=== PATIENT | female | born 1995 | race Caucasian/White ===

== ENCOUNTER 2016-11-28 12:41 | Emergency (ER) | payer MEDICAID ==
[2016-11-28 12:54] VITALS: BP 126/75
--- NOTE | 2016-11-28 12:58 | ER Document Report ---
ED Medical Screen (RME) - General Chief Complaint: Toothache Stated Complaint: MOUTH PAIN Time seen by provider: 12:56 Mode of Arrival: Ambulatory Information source: Patient Notes: 21-year-old female presents to ED for severe mouth pain for a year and half and she cannot stand it anymore. She has not been to a dentist as she does not have insurance. Past menstrual period 11/14/2016. I have greeted and performed a rapid initial assessment of this patient. A comprehensive ED assessment and evaluation of the patient, analysis of test results and completion of medical decision making process will be conducted by an additional ED providers. TRAVEL OUTSIDE OF THE [place] IN LAST 30 DAYS: No - Related Data Allergies/Adverse Reactions: Penicillins Allergy (Verified 03/22/16 17:20) Past Medical History Infectious Medical History: Denies: Hx MRSA - Immunizations Immunizations up to date: Yes Hx Diphtheria, Pertussis, Tetanus Vaccination: Yes Physical Exam - Vital signs Vitals: Temp Pulse Resp BP Pulse Ox 98.2 F 71 16 126/75 H 100 11/28/16 12:53 11/28/16 12:53 11/28/16 12:53 11/28/16 12:53 11/28/16 12:53 Course - Vital Signs Vital signs: Temp Pulse Resp BP Pulse Ox 98.2 F 71 16 126/75 H 100 11/28/16 12:53 11/28/16 12:53 11/28/16 12:53 11/28/16 12:53 11/28/16 12:53
[2016-11-28] MEDS ORDERED: AMOXICILLIN TRIHYDRATE 500 MG CAPSULE PO ONE (13:52)
[2016-11-28] MEDS ORDERED: BUPIVACAINE HCL 0.5 % INJ/PF 30 ML SDV INJ ONE (13:52)
--- NOTE | 2016-11-28 14:06 | ER Document Report ---
ED General - General Chief Complaint: Sore Throat Stated Complaint: MOUTH PAIN Mode of Arrival: Ambulatory Information source: Patient Notes: 21-year-old female presents with complaints of dental pain. Patient notes dental fracture 1 year ago, started having pain over the past 4 months worsened yesteray. denies any fevers or chills, nausea or vomiting TRAVEL OUTSIDE OF THE [place] IN LAST 30 DAYS: No - HPI Onset: Other Onset/Duration: Persistent, Worse Quality of pain: Sharp Severity: Mild Pain Level: 2 Associated symptoms: None Exacerbated by: Denies Relieved by: Denies Similar symptoms previously: No Recently seen / treated by doctor: No - Related Data Allergies/Adverse Reactions: Penicillins Allergy (Verified 11/28/16 12:57) Past Medical History - General Information source: Patient - Social History Smoking Status: Never Smoker Cigarette use (# per day): No Chew tobacco use (# tins/day): No Smoking Education Provided: No Frequency of alcohol use: None Drug Abuse: None Family History: Reviewed & Not Pertinent Patient has suicidal ideation: No Patient has homicidal ideation: No Renal/ Medical History: Denies: Hx Peritoneal Dialysis Infectious Medical History: Denies: Hx MRSA - Immunizations Immunizations up to date: Yes Hx Diphtheria, Pertussis, Tetanus Vaccination: Yes Review of Systems - Review of Systems Notes: REVIEW OF SYSTEMS: CONSTITUTIONAL : Denies fever, chills, or sweats. Denies recent illness. EENT: admits ot dental pain CARDIOVASCULAR: Denies chest pain. Denies palpitations or racing or irregular heart beat. Denies ankle edema. RESPIRATORY: Denies cough, cold, or chest congestion. Denies shortness of breath, difficulty breathing, or wheezing. GASTROINTESTINAL: Denies abdominal pain or distention. Denies nausea, vomiting , or diarrhea. Denies blood in vomitus, stools, or per rectum. Denies black, tarry stools. Denies constipation. GENITOURINARY: Denies difficulty urinating, painful urination, burning, frequency, blood in urine, or discharge. FEMALE GENITOURINARY: Denies vaginal bleeding, heavy or abnormal periods, irregular periods. Denies vaginal discharge or odor. MUSCULOSKELETAL: Denies back or neck pain or stiffness. Denies joint pain or swelling. SKIN: Denies rash, lesions or sores. HEMATOLOGIC : Denies easy bruising or bleeding. LYMPHATIC: Denies swollen, enlarged glands. NEUROLOGICAL: Denies confusion or altered mental status. Denies passing out or loss of consciousness. Denies dizziness or lightheadedness. Denies headache. Denies weakness or paralysis or loss of use of either side. Denies problems with gait or speech. Denies sensory loss, numbness, or tingling. Denies seizures. PSYCHIATRIC: Denies anxiety or stress. Denies depression, suicidal ideation, or homicidal ideation. ALL OTHER SYSTEMS REVIEWED AND NEGATIVE. Dictation was performed using [employer] voice recognition software PHYSICAL EXAMINATION: GENERAL: Well-appearing, well-nourished and in no acute distress. HEAD: Atraumatic, normocephalic. EYES: Pupils equal round extraocular movements intact, conjunctiva are normal. ENT: tooth #13 fractured, no abscess NECK: Normal range of motion LUNGS: No respiratory distress Musculoskeletal: Normal range of motion NEUROLOGICAL: Normal speech, normal gait. PSYCH: Normal mood, normal affect. SKIN: Warm, Dry, normal turgor, no rashes or lesions noted. Physical Exam - Vital signs Vitals: Temp Pulse Resp BP Pulse Ox 98.2 F 71 16 126/75 H 100 11/28/16 12:53 11/28/16 12:53 11/28/16 12:53 11/28/16 12:53 11/28/16 12:53 Course - Re-evaluation Re-evalutation: 11/28/16 14:10 dental block performed with no complication with complete relief , pt given amoxicillin at her request pt given list of low cost dentistry After performing a Medical Screening Examination, I estimate there is LOW risk for a DEEP SPACE INFECTION (e.g., ROVERTO'S ANGINA OR RETROPHARYNGEAL ABSCESS), MENINGITIS, INTRACRANIAL HEMORRHAGE, or AIRWAY COMPROMISE, thus I consider the discharge disposition reasonable. Also, there is no evidence or peritonitis, sepsis, or toxicity. The patient and I have discussed the diagnosis and risks, and we agree with discharging home with close follow-up with the understanding that symptoms and presentations can change. We also discussed returning to the Emergency Department immediately if new or worsening symptoms occur. We have discussed the symptoms which are most concerning (e.g., changing or worsening pain, trouble swallowing or breathing, neck stiffness or fever) that necessitate immediate return. - Vital Signs Vital signs: Temp Pulse Resp BP Pulse Ox 98.2 F 71 16 126/75 H 100 11/28/16 12:53 11/28/16 12:53 11/28/16 12:53 11/28/16 12:53 11/28/16 12:53 Procedures - Additional Procedures inferior orbital nerve block Time performed: 14:22 - using 5 cc of 0.5% sensorcaine with complete releif no complciations Discharge - Discharge Clinical Impression: dental fracture, Pain, dental Condition: Stable Disposition: HOME, SELF-CARE Instructions: Toothache ([facility]), [facility] Prescriptions: Amoxicillin 875 mg PO BID #20 tablet
== END 2016-11-28 14:35 | disposition home or self-care (01) ==
LOC: ER 12:41
PROC: 3E0T3BZ Introduction of Anesthetic Agent into Peripheral Nerves and Plexi, Percutaneous Approach (ICD-10-PCS; principal; 2016-11-28)
DX: K08.89 Other specified disorders of teeth and supporting structures (principal); Z88.0 Allergy status to penicillin
CPT/HCPCS: 99282

== ENCOUNTER 2016-12-10 15:25 | Emergency (ER) | payer SELFPAY ==
--- NOTE | 2016-12-10 15:40 | ER Document Report ---
ED Medical Screen (RME) - General Stated Complaint: KNEE PAIN Mode of Arrival: Ambulatory Information source: Patient Notes: Patient complains of right knee pain for the past week. Patient is uncertain if any specific injury. I have greeted and performed a rapid initial assessment of this patient. A comprehensive ED assessment and evaluation of the patient, analysis of test results and completion of the medical decision making process will be conducted by additional ED providers. TRAVEL OUTSIDE OF THE [place] IN LAST 30 DAYS: No - Related Data Allergies/Adverse Reactions: Penicillins Allergy (Verified 11/28/16 12:57) Past Medical History Renal/ Medical History: Denies: Hx Peritoneal Dialysis Infectious Medical History: Denies: Hx MRSA - Immunizations Immunizations up to date: Yes Hx Diphtheria, Pertussis, Tetanus Vaccination: Yes Physical Exam - Extremities General lower extremity: Tender - Right knee tenderness
--- NOTE | 2016-12-10 18:01 | ER Document Report ---
HPI - HPI Patient complains to provider of: right knee pain Onset: Last week Onset/Duration: Sudden Quality of pain: Achy Severity: Severe Pain Level: 5 Context: Patient presents to the emergency department with complaints of right knee pain. She denies injury. She reports this started hurting week ago and she is not sure why. She reports past medical history of knee sprain. Denies recent trauma. Associated Symptoms: None Exacerbated by: Walking Relieved by: Denies Similar symptoms previously: No Recently seen / treated by doctor: No - REPRODUCTIVE Reproductive: REPORTS: : - DERM Skin Color: Normal Past Medical History - General Information source: Patient Last Menstrual Period: depo - Social History Smoking Status: Unknown if Ever Smoked Cigarette use (# per day): No Chew tobacco use (# tins/day): No Frequency of alcohol use: None Drug Abuse: None Occupation: [employer] Family History: Reviewed & Not Pertinent Patient has suicidal ideation: No Patient has homicidal ideation: No - Medical History Medical History: Negative Renal/ Medical History: Denies: Hx Peritoneal Dialysis Infectious Medical History: Denies: Hx MRSA Surgical Hx: Negative - Immunizations Immunizations up to date: Yes Hx Diphtheria, Pertussis, Tetanus Vaccination: Yes Vertical Provider Document - CONSTITUTIONAL Agree With Documented VS: Yes Exam Limitations: No Limitations General Appearance: WD/WN, No Apparent Distress - INFECTION CONTROL TRAVEL OUTSIDE OF THE [place] IN LAST 30 DAYS: No - HEENT HEENT: Atraumatic, Normocephalic - NECK Neck: Supple - RESPIRATORY Respiratory: No Respiratory Distress O2 Sat by Pulse Oximetry: 99 - CARDIOVASCULAR Cardiovascular: Regular Rate - MUSCULOSKELETAL/EXTREMETIES Musculoskeletal/Extremeties: MAEW, FROM, Tender - Right knee medially and laterally tender to palpation no obvious deformity no swelling or erythema no warmth good pedal pulse - NEURO Level of Consciousness: Awake, Alert, Appropriate Motor/Sensory: No Motor Deficit - DERM Integumentary: Warm, Dry Course - Re-evaluation Re-evalutation: 12/10/16 18:05 Patient declined Danny wrap. She reports she has her own Danny wrap - Vital Signs Vital signs: Temp Pulse Resp BP Pulse Ox 98.3 F 94 16 123/63 99 12/10/16 15:37 12/10/16 15:37 12/10/16 15:37 12/10/16 15:37 12/10/16 15:37 - Diagnostic Test Radiology reviewed: Image reviewed, Reports reviewed - Negative x-ray Discharge - Discharge Clinical Impression: Elevated blood pressure reading Right knee pain Qualifiers: Chronicity: acute Qualified Code(s): M25.561 - Pain in right knee Condition: Stable Disposition: HOME, SELF-CARE Instructions: Ice & Elevation ([facility]), Ibuprofen (General) ([facility]), Danny Wrap ([facility]) Additional Instructions: *You have been evaluated for right knee pain with no known injury *Maintain the danny wrap for comfort *Follow up with orthopedics this week-call for an appointment *Take ibuprofen as indicated for pain *Return to ED for worsening condition, changes, needs Prescriptions: Ibuprofen [Motrin 800 mg Tablet] 800 mg PO TID PRN #30 tablet PRN Reason: Forms: Return to Work, Elevated Blood Pressure
[2016-12-10 18:06] VITALS: BP 120/60
== END 2016-12-10 18:06 | disposition home or self-care (01) ==
LOC: ER 15:25
DX: M25.561 Pain in right knee (principal); R03.0 Elevated blood-pressure reading, without diagnosis of hypertension
CPT/HCPCS: 99283

== ENCOUNTER 2016-12-22 10:38 | Emergency (ER) | payer SELFPAY ==
--- NOTE | 2016-12-22 10:50 | ER Document Report ---
ED Medical Screen (RME) - General Stated Complaint: VOMITING Mode of Arrival: Ambulatory Information source: Patient Notes: 21 y/o F presents to ED c/o intermittent episodes of "being emotional", n/v, changes in appetite, headaches, and pelvic cramping over the last 4 weeks. States LMP 11/14/16 and on Depo Provera. Denies pain at this time. I have greeted and performed a rapid initial assessment of this patient. A comprehensive ED assessment and evaluation of the patient, analysis of test results and completion of the medical decision making process will be conducted by additional ED providers. TRAVEL OUTSIDE OF THE [place] IN LAST 30 DAYS: No - Related Data Allergies/Adverse Reactions: Penicillins Allergy (Verified 11/28/16 12:57) Past Medical History Renal/ Medical History: Denies: Hx Peritoneal Dialysis Infectious Medical History: Denies: Hx MRSA - Immunizations Immunizations up to date: Yes Hx Diphtheria, Pertussis, Tetanus Vaccination: Yes Physical Exam - General General appearance: Appears well, Alert In distress: None
[2016-12-22 11:25] LABS: APPEARANCE,URINE SLIGHTLY-CLOUDY; BILIRUBIN,URINE NEGATIVE (NEGATIVE); GLUCOSE, URINE NEGATIVE (NEGATIVE); KETONES,URINE NEGATIVE (NEGATIVE); LEUKOCYTE ESTERASE,URINE NEGATIVE (NEGATIVE); NITRITE,URINE NEGATIVE (NEGATIVE); PROTEIN,URINE NEGATIVE (NEGATIVE); UROBILINOGEN,URINE NEGATIVE mg/dL (<2.0)
[2016-12-22] MEDS ORDERED: ACETAMINOPHEN 325 MG TABLET PO ONE (11:27)
[2016-12-22] MEDS ORDERED: ONDANSETRON 4 MG TAB.RAPDIS PO ONE (11:27)
--- NOTE | 2016-12-22 11:38 | ER Document Report ---
ED General - General Chief Complaint: Nausea Stated Complaint: VOMITING Mode of Arrival: Ambulatory Information source: Patient Notes: Patient presents complaining of lower pelvic cramping, mood swings, nausea, and headache off and on for the past 3 weeks. Patient states that her cramping feels similar to whenever she is about to start her menstrual cycle. Patient states she gets menstrual cycle every month despite been on Depo. Patient's last depo shot was 11/14/2016. Patient reports headache pain has been off and on but comes back daily. Patient does report nausea with vomiting 1 episode today. Patient denies any fever. Patient complains of mood swings in which case she easily is brought to tears. Patient denies any suicidal or homicidal ideation. Patient does report that her children were taken from her back in August of last year. TRAVEL OUTSIDE OF THE [place] IN LAST 30 DAYS: No - HPI Onset: Other - 3 weeks Onset/Duration: Waxing and waning Quality of pain: Cramping Pain Level: 1 Associated symptoms: Headache, Nausea, Vomiting. denies: Nonproductive cough, Fever Exacerbated by: Denies Relieved by: Denies Similar symptoms previously: Yes Recently seen / treated by doctor: No - Related Data Allergies/Adverse Reactions: Penicillins Allergy (Verified 12/22/16 10:49) Past Medical History - General Information source: Patient Last Menstrual Period: 11/14/2016 - Social History Smoking Status: Never Smoker Chew tobacco use (# tins/day): No Frequency of alcohol use: None Drug Abuse: None Occupation: housekeeping Family History: Reviewed & Not Pertinent Patient has suicidal ideation: No Patient has homicidal ideation: No - Medical History Medical History: Negative Renal/ Medical History: Denies: Hx Peritoneal Dialysis Infectious Medical History: Denies: Hx MRSA Surgical Hx: Negative - Immunizations Immunizations up to date: Yes Hx Diphtheria, Pertussis, Tetanus Vaccination: Yes Review of Systems - Review of Systems Constitutional: No symptoms reported. denies: Fever EENT: No symptoms reported Cardiovascular: No symptoms reported. denies: Chest pain Respiratory: No symptoms reported. denies: Cough Gastrointestinal: Abdominal pain, Nausea, Vomiting. denies: Diarrhea Genitourinary: No symptoms reported. denies: Dysuria, Frequency, Flank pain Female Genitourinary: No symptoms reported. denies: Vaginal discharge Musculoskeletal: No symptoms reported. denies: Back pain Skin: No symptoms reported Hematologic/Lymphatic: No symptoms reported Neurological/Psychological: Headaches - Bilateral mandaen area Physical Exam - Vital signs Vitals: Temp Pulse Resp BP Pulse Ox 97.5 F 75 18 120/64 100 12/22/16 10:47 12/22/16 10:47 12/22/16 10:47 12/22/16 10:47 12/22/16 10:47 - General General appearance: Appears well, Alert In distress: None Notes: PHYSICAL EXAMINATION: GENERAL: Well-appearing and in no acute distress. HEAD: Atraumatic, normocephalic. EYES: sclera anicteric, conjunctiva are normal. ENT: nares patent. Moist mucous membranes. NECK: Normal range of motion, supple without lymphadenopathy LUNGS: CTAB and equal. No wheezes rales or rhonchi. HEART: Regular rate and rhythm without murmurs ABDOMEN: Soft, mild suprapubic tenderness, normal bowel sounds, no guarding. EXTREMITIES: Normal range of motion, no pitting edema. No cyanosis. BACK: No midline tenderness, no step-off or deformity. No CVA tenderness NEUROLOGICAL: Cranial nerves grossly intact. Normal speech. Normal gait. PSYCH: Normal mood, normal affect. SKIN: Warm, Dry, normal turgor, no rashes or lesions noted Course - Re-evaluation Re-evalutation: 12/22/16 11:33 Discussed results of patient's urinalysis with patient. Patient declines any additional testing. Patient declines any blood work or pelvic examination. Patient states that her pelvic cramping just feels like she is about to start her menstrual cycle. Explained to patient that a definitive cause of her lower pelvic cramping cannot be determined without additional evaluation. Patient states primarily her visit was to seek treatment for her intermittent mood swings and crying episodes. Patient denies any suicidal or homicidal ideation. 12/22/16 11:[address] Quintanilla regarding patient presentation, recommends [facility] referral, may consider prescription for Vistaril. - Vital Signs Vital signs: Temp Pulse Resp BP Pulse Ox 97.8 F 75 14 133/74 H 100 12/22/16 12:01 12/22/16 12:01 12/22/16 12:01 12/22/16 12:01 12/22/16 12:01 - Laboratory Laboratory results interpreted by me: 12/22/16 11:34 Labs- Entire Visit 12/22/16 11:02 Urine Color YELLOW Urine Appearance SLIGHTLY-CLOUDY Urine pH 5.0 Ur Specific [place] 1.020 Urine Protein NEGATIVE Urine Glucose (UA) NEGATIVE Urine Ketones NEGATIVE Urine Blood NEGATIVE Urine Nitrite NEGATIVE Urine Bilirubin NEGATIVE Urine Urobilinogen NEGATIVE Ur Leukocyte Esterase NEGATIVE Urine WBC (Auto) 1 Urine RBC (Auto) 0 Squamous Epi Cells Auto 5 Urine Mucus (Auto) RARE Urine Ascorbic Acid NEGATIVE Urine HCG, Qual NEGATIVE Discharge - Discharge Clinical Impression: Mood changes, Pelvic cramping Nausea & vomiting Qualifiers: Vomiting type: unspecified Vomiting Intractability: non-intractable Qualified Code(s): R11.2 - Nausea with vomiting, unspecified Headache Qualifiers: Headache type: unspecified Headache chronicity pattern: unspecified pattern Intractability: not intractable Qualified Code(s): R51 - Headache Condition: Stable Disposition: HOME, SELF-CARE Instructions: Antinausea Medication ([facility]), Vomiting ([facility]), Headache ([facility]), Pelvic Pain ([facility]) Additional Instructions: Return immediately for any new or worsening symptoms Followup with a primary care provider, call tomorrow to make a followup appointment Follow up with a mental health specialist such as Jennifer (see handout) for follow- up regarding mood swings Prescriptions: Hydroxyzine HCl [Atarax 25 mg Tablet] 1 tab PO QHS PRN #15 tablet PRN Reason: Forms: Return to Work Referrals: [facility] [Provider Group] - Follow up as needed [facility] [Provider Group] - Follow up as needed [facility] [Provider Group] - Follow up as needed
[2016-12-22 12:05] VITALS: BP 133/74
== END 2016-12-22 12:05 | disposition home or self-care (01) ==
LOC: ER 10:38
DX: R11.2 Nausea with vomiting, unspecified (principal); R10.2 Pelvic and perineal pain; R45.89 Other symptoms and signs involving emotional state; R51 Headache; Z88.0 Allergy status to penicillin; Z79.3 Long term (current) use of hormonal contraceptives
CPT/HCPCS: 99283; 81025; 81001; S0119

== ENCOUNTER 2016-12-31 13:27 | Emergency (ER) | payer SELFPAY ==
--- NOTE | 2016-12-31 13:45 | ER Document Report ---
ED Medical Screen (RME) - General Stated Complaint: VAGINAL BLEEDING,ABDOMINAL PAIN Time seen by provider: 13:43 Mode of Arrival: Ambulatory Information source: Patient Notes: 21-year-old female presents to ED for vaginal bleeding since Sunday she is on Depo, she thinks she had a miscarriage on night. I have greeted and performed a rapid initial assessment of this patient. A comprehensive ED assessment and evaluation of the patient, analysis of test results and completion of medical decision making process will be conducted by an additional ED providers. TRAVEL OUTSIDE OF THE [place] IN LAST 30 DAYS: No - Related Data Allergies/Adverse Reactions: Penicillins Allergy (Verified 12/22/16 10:49) Past Medical History Renal/ Medical History: Denies: Hx Peritoneal Dialysis Infectious Medical History: Denies: Hx MRSA - Immunizations Immunizations up to date: Yes Hx Diphtheria, Pertussis, Tetanus Vaccination: Yes Physical Exam - Vital signs Vitals: Temp Pulse Resp BP Pulse Ox 97.4 F 78 20 117/78 95 12/31/16 13:35 12/31/16 13:35 12/31/16 13:35 12/31/16 13:35 12/31/16 13:35 Course - Vital Signs Vital signs: Temp Pulse Resp BP Pulse Ox 97.4 F 78 20 117/78 95 12/31/16 13:35 12/31/16 13:35 12/31/16 13:35 12/31/16 13:35 12/31/16 13:35
--- NOTE | 2016-12-31 14:10 | ER Document Report ---
ED GI/ - General Chief Complaint: Vaginal Bleeding Stated Complaint: VAGINAL BLEEDING,ABDOMINAL PAIN Time seen by provider: 14:06 Mode of Arrival: Ambulatory TRAVEL OUTSIDE OF THE [place] IN LAST 30 DAYS: No - HPI Patient complains to provider of: Vaginal bleeding - pt is [id number] who is on depo and has had several neg preg tests in the past few weeks. States she passed what she thought was tissue 2 days ago at home and has had some "very light" vaginal bleeding with some abdominal cramping over the past 1-2 days. - Related Data Allergies/Adverse Reactions: peanut Allergy (Verified 12/31/16 13:43) Penicillins Allergy (Verified 12/31/16 13:43) Past Medical History - General Information source: Patient - Social History Smoking Status: Never Smoker Chew tobacco use (# tins/day): No Frequency of alcohol use: None Drug Abuse: None Family History: Reviewed & Not Pertinent Patient has suicidal ideation: No Patient has homicidal ideation: No Renal/ Medical History: Denies: Hx Peritoneal Dialysis Infectious Medical History: Denies: Hx MRSA - Immunizations Immunizations up to date: Yes Hx Diphtheria, Pertussis, Tetanus Vaccination: Yes Review of Systems - Review of Systems Constitutional: No symptoms reported EENT: No symptoms reported Cardiovascular: No symptoms reported Respiratory: No symptoms reported Gastrointestinal: See HPI, Abdominal pain Female Genitourinary: See HPI, Vaginal bleeding -: Yes All other systems reviewed and negative Physical Exam - Vital signs Vitals: Temp Pulse Resp BP Pulse Ox 97.4 F 78 20 117/78 95 12/31/16 13:35 12/31/16 13:35 12/31/16 13:35 12/31/16 13:35 12/31/16 13:35 - General General appearance: Appears well In distress: None - Respiratory Respiratory status: No respiratory distress Breath sounds: Normal - Cardiovascular Rhythm: Regular Heart sounds: Normal auscultation - Abdominal Inspection: Normal Tenderness: Nontender - Genitourinary Speculum exam: Other - pelvic exam has been deferred per pt. request Course - Vital Signs Vital signs: Temp Pulse Resp BP Pulse Ox 97.4 F 78 20 117/78 95 12/31/16 13:35 12/31/16 13:35 12/31/16 13:35 12/31/16 13:35 12/31/16 13:35 - Laboratory Result Diagrams: 12/31/16 13:53 12/31/16 13:53 Laboratory results interpreted by me: 12/31/16 12/31/16 12/31/16 13:53 13:53 13:53 Hgb 11.0 L Hct 35.2 L MCV 67 L MCH 21.0 L MCHC 31.2 L RDW 16.8 H Monocytes % 13.9 H Carbon Dioxide 21 L AST 13 L Urine Protein 30 H Urine Blood MODERATE H Discharge - Discharge Clinical Impression: Vaginal bleeding Condition: Stable Disposition: HOME, SELF-CARE Additional Instructions: rest, return if worse Referrals: GARRY BACA MD [ACTIVE STAFF] - Follow up as needed
[2016-12-31 14:22] LABS: ABSOLUTE EOSINOPHILS # (AUTO) 0.1 10^3/uL (0.0-0.6); ABSOLUTE LYMPHOCYTES (AUTO) 1.7 10^3/uL (0.5-4.7); ABSOLUTE MONOCYTES (AUTO) 0.7 10^3/uL (0.1-1.4); ABSOLUTE NEUT (AUTO) 2.8 10^3/uL (1.7-8.2); BASOPHILS % (AUTO) 0.9 % (0-2); EOSINOPHILS % (AUTO) 1.7 % (0-6); HEMATOCRIT 35.2 % (36.0-47.0); HGB HCT DIFFERENCE -2.2; LYMPHOCYTES % (AUTO) 31.1 % (13-45); MEAN CORPUSCULAR HGB CONC 31.2 g/dL (32.0-36.0); MEAN CORPUSCULAR VOLUME 67 fl (80-97); MONOCYTES % (AUTO) 13.9 % (3-13); RED BLOOD COUNT 5.23 10^6/uL (3.72-5.28); RED CELL DISTRIBUTION WIDTH 16.8 % (11.5-14.0); SEGMENTED NEUTROPHILS % (AUTO) 52.4 % (42-78); WHITE BLOOD COUNT 5.3 10^3/uL (4.0-10.5)
[2016-12-31 14:28] LABS: APPEARANCE,URINE CLEAR; BILIRUBIN,URINE NEGATIVE (NEGATIVE); GLUCOSE, URINE NEGATIVE (NEGATIVE); KETONES,URINE NEGATIVE (NEGATIVE); LEUKOCYTE ESTERASE,URINE NEGATIVE (NEGATIVE); NITRITE,URINE NEGATIVE (NEGATIVE); PROTEIN,URINE 30 mg/dL (NEGATIVE); URINE SPECIFIC GRAVITY 1.032; UROBILINOGEN,URINE NEGATIVE mg/dL (<2.0)
[2016-12-31 14:37] LABS: ALANINE AMINOTRANSFERASE 28 U/L (9-52); ALBUMIN 4.3 g/dL (3.5-5.0); ALKALINE PHOSPHATASE 58 U/L (38-126); ANION GAP 15 (5-19); ASPARTATE AMINO TRANSFERASE 13 U/L (14-36); BILIRUBIN,TOTAL 0.3 mg/dL (0.2-1.3); BLOOD UREA NITROGEN 10 mg/dL (7-20); CALCIUM 9.5 mg/dL (8.4-10.2); CARBON DIOXIDE 21 mmol/L (22-30); CHLORIDE 105 mmol/L (98-107); CREATININE RESULT 0.67 mg/dL (0.52-1.25); GLUCOSE 82 mg/dL (75-110); POTASSIUM 4.5 mmol/L (3.6-5.0); SODIUM 140.6 mmol/L (137-145); TOTAL PROTEIN 7.3 g/dL (6.3-8.2)
[2016-12-31 15:16] VITALS: BP 127/85
== END 2016-12-31 15:14 | disposition home or self-care (01) ==
LOC: ER 13:27
DX: N93.8 Other specified abnormal uterine and vaginal bleeding (principal); R10.9 Unspecified abdominal pain; Z88.0 Allergy status to penicillin; Z91.010 Allergy to peanuts
CPT/HCPCS: 36415; 80053; 81001; 84702; 85025; 99284

== ENCOUNTER 2017-01-28 11:30 | Emergency (ER) | payer SELFPAY ==
[2017-01-28 11:44] VITALS: BP 127/76
--- NOTE | 2017-01-28 11:46 | ER Document Report ---
ED Medical Screen (RME) - General Stated Complaint: CHEST PAIN Mode of Arrival: Ambulatory Information source: Patient Notes: Patient presents to the emergency department with complaints of chronic nausea vomiting and headache for the past 3 months. She reports she's been evaluated here recently symptoms. She reports chest pain midsternal this morning. The ninth recent trauma. Reports her kids were taken from her recently. [place] cough fever. I have greeted and performed a rapid initial assessment of this patient. A comprehensive ED assessment and evaluation of the patient, analysis of test results and completion of the medical decision making process will be conducted by additional ED providers. TRAVEL OUTSIDE OF THE [place] IN LAST 30 DAYS: No - Related Data Allergies/Adverse Reactions: peanut Allergy (Verified 01/16/17 13:36) Penicillins Allergy (Verified 01/16/17 13:36) Past Medical History Renal/ Medical History: Denies: Hx Peritoneal Dialysis Infectious Medical History: Denies: Hx MRSA - Immunizations Immunizations up to date: Yes Hx Diphtheria, Pertussis, Tetanus Vaccination: Yes Physical Exam - Vital signs Vitals: Temp Pulse Resp BP Pulse Ox 97.8 F 73 16 127/76 H 100 01/28/17 11:43 01/28/17 11:43 01/28/17 11:43 01/28/17 11:43 01/28/17 11:43 Course - Vital Signs Vital signs: Temp Pulse Resp BP Pulse Ox 97.8 F 73 16 127/76 H 100 01/28/17 11:43 01/28/17 11:43 01/28/17 11:43 01/28/17 11:43 01/28/17 11:43
--- NOTE | 2017-01-28 12:44 | ER Document Report ---
ED General - General Time seen by provider: 12:15 Mode of Arrival: Ambulatory Information source: Patient TRAVEL OUTSIDE OF THE [place] IN LAST 30 DAYS: No - HPI Associated symptoms: Nausea, Vomiting - General Chief Complaint: Chest Pain Stated Complaint: CHEST PAIN Notes: Patient is a 22 year old female presenting to the ED for chest pain and abdominal pain. Patient states she gets anxiety attacks. Patient also has intermittent nausea, vomiting, and headaches for the last 3 months. Patient reports to triage that her children were taken away from her recently. Patient denies cough or fever. Patient has also been evaluated for this in the past. Patient states her heart feels like it is getting crushed. Patient does not have any insurance or a PCP. (JOVAN PATE) - Related Data Allergies/Adverse Reactions: peanut Allergy (Verified 01/28/17 11:46) Penicillins Allergy (Verified 01/28/17 11:46) Past Medical History - General Information source: Patient - Social History Smoking Status: Never Smoker Cigarette use (# per day): No Chew tobacco use (# tins/day): No Frequency of alcohol use: Occasional Drug Abuse: None Family History: None Patient has suicidal ideation: No Patient has homicidal ideation: No - Immunizations Immunizations up to date: Yes Hx Diphtheria, Pertussis, Tetanus Vaccination: Yes Review of Systems - Review of Systems Constitutional: No symptoms reported EENT: No symptoms reported Cardiovascular: No symptoms reported Respiratory: No symptoms reported Gastrointestinal: See HPI, Nausea, Vomiting Genitourinary: No symptoms reported Female Genitourinary: No symptoms reported Musculoskeletal: No symptoms reported Skin: No symptoms reported Hematologic/Lymphatic: No symptoms reported Neurological/Psychological: See HPI, Anxiety -: Yes All other systems reviewed and negative Course - Re-evaluation Re-evalutation: 01/28/17 22:30 I personally performed the services described in the documentation, reviewed and edited the documentation which was dictated to my scribe in my presence, and it accurately records my words and actions. Patient with multiple complaints all of which are chronic in nature has been seen and evaluated in the ED are multiple times but not received adequate follow -up or gone any appointments. Complaining of stomach pain since she was a child. Points to the epigastric region no acute abdominal guarding rebound rigidity start her on some Prilosec for that. Says she has anxiety and panic attacks got her information to follow up with [facility]. No emergent concerns on medical screening examination warranting any additional laboratory evaluation CT scans or x-rays. Patient is currently medically stable I gave her family doctor a follow-up doctor for her anxiety she is to follow-up with her new primary care physician in 2-3 days she can walk into the outpatient treatment with the doctor's from [facility] in a.m. and discuss reasons for ED return sooner ( LIDIA MARINELLI) - Vital Signs Vital signs: Temp Pulse Resp BP Pulse Ox 97.8 F 73 16 127/76 H 100 01/28/17 11:43 01/28/17 11:43 01/28/17 11:43 01/28/17 11:43 01/28/17 11:43 Discharge - Discharge Clinical Impression: Anxiety, chronic nausea and abdominal pain Condition: Stable Disposition: HOME, SELF-CARE Additional Instructions: Anxiety The physician feels that some of your health problems are being caused by anxiety. Anxiety affects your health in many ways. Anxiety alone can cause palpitations, sweats, chest pains, abdominal pains, shortness of breath, and headaches. It contributes to ulcer disease, high blood pressure, irritable bowel syndrome, and has been shown to cause flare-ups of many other diseases. Anxiety is not a simple disorder to treat. If the anxiety is due to recent life stresses, you may simply need time to "work through" the changes. If the anxiety is due to an underlying unhappiness with yourself or due to psychiatric disturbance, professional help will be needed. Your physician can refer you for further help if needed. Anti-anxiety medication is occasionally given if the stress is acute or if you are having trouble sleeping. Chronic or frequent use of these medications is not a good idea because the body becomes reliant on it, preventing you from dealing with life's normal stresses. Abdominal Pain There are many causes of abdominal pain. Pain can mean a serious problem requiring surgery (such as appendicitis). It can also be an innocent problem that goes away on its own (such as a viral infection). Often, time must pass to determine the cause of pain. The physician does not feel that hospitalization is necessary, at present. Things may change within the next 24 hours. Call the doctor or come back for re- examination if any problems occur, such as: (1) Pain that becomes more severe, steady, or becomes concentrated in one specific area. Also, pain that is more severe with movement or coughing. (2) Vomiting that persists or becomes more frequent. (3) Blood in the vomitus, urine, or bowel movements. Blood in the stool may have a tarry or black appearance. (4) Shaking chills or fever greater than 100 degrees F. (5) The abdomen becomes more distended or swollen. (6) Bowel movements cease. (7) Failure to improve as expected. Prescriptions: Omeprazole Magnesium [Prilosec Otc] 20 mg PO DAILY #12 tablet. Referrals: [facility] [Provider Group] - Follow up in 3-5 days (Call for an appointment to be seen in the next 3-5 days we've also given you information to see our [facility] as an outpatient for your anxiety with walk-in hours starting tomorrow morning. Return to the emergency department sooner for increasing worsening or new symptoms) Scribe Documentation - Scribe Written by Checo:: Jovan Pate 01/28/17 18:33 acting as scribe for :: Harsh
--- NOTE | 2017-01-28 20:01 | EKG REPORT ---
SEVERITY:- NORMAL ECG - SINUS RHYTHM : Confirmed by: John Loco MD 28-Jan-2017 19:59:42
== END 2017-01-28 12:54 | disposition home or self-care (01) ==
LOC: ER 11:30
DX: R10.13 Epigastric pain (principal); G89.29 Other chronic pain; F41.9 Anxiety disorder, unspecified; R11.2 Nausea with vomiting, unspecified; R07.9 Chest pain, unspecified; R51 Headache; F41.0 Panic disorder [episodic paroxysmal anxiety]; Z91.010 Allergy to peanuts; Z88.0 Allergy status to penicillin
CPT/HCPCS: 93005; 93010; 99283

== ENCOUNTER 2017-04-10 17:02 | Emergency (ER) | payer SELFPAY ==
[2017-04-10 17:24] VITALS: BP 118/70
--- NOTE | 2017-04-10 18:15 | ER Document Report ---
HPI - HPI Patient complains to provider of: chest pain, anxiety Onset: Other Onset/Duration: Sudden Quality of pain: Other - tight Severity: Moderate Pain Level: 3 Context: States she has been having intermittent chest pains and anxiety for the last couple of years. Was seen here in the ER in January and diagnosed with anxiety. Recommended to follow-up with [facility] but patient did not. States pain started today after having an argument with her boyfriend. She states she was also seen by a muskrat trapper 4 or 5 years ago in [place] diagnosed with a heart murmur, but has had no problems with it. Symptoms are almost gone at this time. Associated Symptoms: Chest pain, Shortness of breath Exacerbated by: Denies Relieved by: Denies Similar symptoms previously: Yes Recently seen / treated by doctor: Yes - ROS ROS below otherwise negative: Yes Systems Reviewed and Negative: Yes All other systems reviewed and negative - CONSTITUTIONAL Constitutional: DENIES: Fever - EENT EENT: DENIES: Nasal Drainage-Purulent - NEURO Neurology: DENIES: Headache - CARDIOVASCULAR Cardiovascular: REPORTS: Chest pain - RESPIRATORY Respiratory: REPORTS: Trouble Breathing. DENIES: Coughing - GASTROINTESTINAL Gastrointestinal: DENIES: Abdominal Pain - URINARY Urinary: DENIES: Dysuria - MUSCULOSKELETAL Musculoskeletal: DENIES: Extremity pain - DERM Skin Color: Normal Skin Problems: None Past Medical History - General Information source: Patient - Social History Smoking Status: Never Smoker Chew tobacco use (# tins/day): No Frequency of alcohol use: None Drug Abuse: None Lives with: Family Family History: None Patient has suicidal ideation: No Patient has homicidal ideation: No - Past Medical History Cardiac Medical History: Reports: Hx Heart Murmur Psychiatric Medical History: Reports: Hx Anxiety Surgical Hx: Negative - Immunizations Immunizations up to date: Yes Hx Diphtheria, Pertussis, Tetanus Vaccination: Yes Vertical Provider Document - CONSTITUTIONAL Agree With Documented VS: Yes General Appearance: WD/WN, No Apparent Distress - Patient texting on her phone. - INFECTION CONTROL TRAVEL OUTSIDE OF THE [place] IN LAST 30 DAYS: No - HEENT HEENT: Atraumatic, Normal ENT Exam - NECK Neck: Normal Inspection, Supple - RESPIRATORY Respiratory: Breath Sounds Normal, No Respiratory Distress O2 Sat by Pulse Oximetry: 98 - CARDIOVASCULAR Cardiovascular: Regular Rate - GI/ABDOMEN Gastrointestinal: Abdomen Soft, Abdomen Non-Tender - MUSCULOSKELETAL/EXTREMETIES Musculoskeletal/Extremeties: MAEW, FROM - NEURO Level of Consciousness: Awake, Alert, Appropriate - DERM Integumentary: Warm, Dry, No Rash Course - Re-evaluation Re-evalutation: 04/10/17 19:06 All lab work and x-rays were normal and were discussed with patient. - Vital Signs Vital signs: Temp Pulse Resp BP Pulse Ox 97.7 F 80 16 118/70 98 04/10/17 17:21 04/10/17 17:21 04/10/17 17:21 04/10/17 17:21 04/10/17 17:21 Discharge - Discharge Clinical Impression: Anxiety Chest pain Qualifiers: Chest pain type: unspecified Qualified Code(s): R07.9 - Chest pain, unspecified Condition: Good Disposition: HOME, SELF-CARE Instructions: Anxiety ([facility]) Additional Instructions: follow up with [facility] for evaluation of ongoing anxiety issues test was negative return as needed Prescriptions: Hydroxyzine Pamoate [Vistaril 25 mg Capsule] 25 mg PO PRN PRN #15 capsule PRN Reason:
[2017-04-10 18:37] LABS: URINE BARBITURATES SCREEN NEGATIVE; URINE METHADONE SCREEN NEGATIVE; URINE OPIATES LOW NEGATIVE; URINE PHENCYCLIDINE SCREEN NEGATIVE
--- NOTE | 2017-04-10 18:38 | RADIOLOGY REPORT (SQ) ---
EXAM DESCRIPTION: CHEST PA/LAT COMPLETED DATE/TIME: 04/10/2017 6:29 pm REASON FOR STUDY: chest pain - shield patient COMPARISON: 07/31/2013 EXAM PARAMETERS: NUMBER OF VIEWS: two views TECHNIQUE: Digital Frontal and Lateral radiographic views of the chest acquired. RADIATION DOSE: NA LIMITATIONS: none FINDINGS: LUNGS AND PLEURA: No opacities, masses or pneumothorax. No pleural effusion. MEDIASTINUM AND HILAR STRUCTURES: No masses or contour abnormalities. HEART AND VASCULAR STRUCTURES: Heart normal size. No evidence for failure. BONES: No acute findings. HARDWARE: None in the chest. OTHER: No other significant finding. IMPRESSION: NO SIGNIFICANT RADIOGRAPHIC FINDING IN THE CHEST. TECHNICAL DOCUMENTATION: JOB ID: [id number] [employer]- All Rights Reserved
--- NOTE | 2017-04-11 09:12 | EKG REPORT ---
SEVERITY:- BORDERLINE ECG - SINUS ARRHYTHMIA, RATE 52-72 BORDERLINE T ABNORMALITIES, ANTERIOR LEADS : Confirmed by: Ave Meeks MD 11-Apr-2017 09:12:04
== END 2017-04-10 19:10 | disposition home or self-care (01) ==
LOC: ER 17:02
DX: R07.9 Chest pain, unspecified (principal); F41.9 Anxiety disorder, unspecified
CPT/HCPCS: 36415; 71020; 80307; 81025; 84484; 93005; 93010; 99284

== ENCOUNTER 2017-05-17 16:45 | Emergency (ER) | payer SELFPAY ==
--- NOTE | 2017-05-17 17:09 | ER Document Report ---
ED Medical Screen (RME) - General Chief Complaint: Abdominal Pain Stated Complaint: ABDOMINAL PAIN Time Seen by Provider: 05/17/17 16:58 Notes: Patient has been experiencing lower abdominal pains for the past couple of weeks , but it worsened today. Is located in the lower abdomen bilaterally. She is also having pain in her lower back for the past couple of weeks. She has been nauseated and vomiting a couple of times a day for the last few days. No diarrhea. No fevers. No UTI symptoms. Patient's last menstrual cycle was about 6 weeks ago. She had 6 home test and 5 of them were positive. If , this will be the sixth as she has 3 living children has had 2 miscarriages. No history of abdominal surgeries. On no regular medications. Does have anxiety. TRAVEL OUTSIDE OF THE [place] IN LAST 30 DAYS: No - Related Data Allergies/Adverse Reactions: peanut Allergy (Verified 05/17/17 16:55) Penicillins Allergy (Verified 05/17/17 16:55) Past Medical History - Past Medical History Cardiac Medical History: Reports: Hx Heart Murmur Renal/ Medical History: Denies: Hx Peritoneal Dialysis Psychiatric Medical History: Reports: Hx Anxiety Infectious Medical History: Denies: Hx MRSA - Immunizations Immunizations up to date: Yes Hx Diphtheria, Pertussis, Tetanus Vaccination: Yes Physical Exam - Vital signs Vitals: Temp Pulse Resp BP Pulse Ox 97.9 F 79 18 114/82 100 05/17/17 16:56 05/17/17 16:56 05/17/17 16:56 05/17/17 16:56 05/17/17 16:56 Course - Vital Signs Vital signs: Temp Pulse Resp BP Pulse Ox 97.9 F 79 18 114/82 100 05/17/17 16:56 05/17/17 16:56 05/17/17 16:56 05/17/17 16:56 05/17/17 16:56
--- NOTE | 2017-05-17 17:22 | ER Document Report ---
ED GI/ - General Chief Complaint: Abdominal Pain Stated Complaint: ABDOMINAL PAIN Time Seen by Provider: 05/17/17 16:58 Notes: Patient is a 22-year-old female, , presents with 2 weeks of lower abdominal pain, nausea, vomiting and feeling lightheaded. Patient has taken 6 tests at home and she said that they were positive and her LMP was 6 weeks ago. Denies vaginal bleeding, urinary symptoms, flank pain, fevers, vaginal discharge or rash. TRAVEL OUTSIDE OF THE [place] IN LAST 30 DAYS: No - Related Data Allergies/Adverse Reactions: peanut Allergy (Verified 05/17/17 16:55) Penicillins Allergy (Verified 05/17/17 16:55) Past Medical History - General Information source: Patient - Social History Smoking Status: Never Smoker Chew tobacco use (# tins/day): No Frequency of alcohol use: None Drug Abuse: None Family History: None Patient has suicidal ideation: No Patient has homicidal ideation: No - Past Medical History Cardiac Medical History: Reports: Hx Heart Murmur Renal/ Medical History: Denies: Hx Peritoneal Dialysis Psychiatric Medical History: Reports: Hx Anxiety Infectious Medical History: Denies: Hx MRSA Surgical Hx: Negative - Immunizations Immunizations up to date: Yes Hx Diphtheria, Pertussis, Tetanus Vaccination: Yes Review of Systems - Review of Systems Notes: REVIEW OF SYSTEMS: CONSTITUTIONAL: -fevers, -chills EENT: -eye pain, -difficulty swallowing, -nasal congestion CARDIOVASCULAR:-chest pain, -syncope. RESPIRATORY: -cough, -SOB GASTROINTESTINAL: +abdominal pain, +nausea, -vomiting, -diarrhea GENITOURINARY: -dysuria, -hematuria MUSCULOSKELETAL: -back pain, -neck pain SKIN: -rash or skin lesions. HEMATOLOGIC: -easy bruising or bleeding. LYMPHATIC: -swollen, enlarged glands. NEUROLOGICAL: -altered mental status or loss of consciousness, -headache, - neurologic symptoms PSYCHIATRIC: -anxiety, -depression. ALL OTHER SYSTEMS REVIEWED AND NEGATIVE. Physical Exam - Vital signs Vitals: Temp Pulse Resp BP Pulse Ox 97.9 F 79 18 114/82 100 05/17/17 16:56 05/17/17 16:56 05/17/17 16:56 05/17/17 16:56 05/17/17 16:56 - Notes Notes: PHYSICAL EXAMINATION: GENERAL: Well-appearing, well-nourished and in no acute distress. HEAD: Atraumatic, normocephalic. EYES: Pupils equal round and reactive to light, extraocular movements intact, sclera anicteric, conjunctiva are normal. ENT: nares patent, oropharynx clear without exudates. Moist mucous membranes. NECK: Normal range of motion, supple without lymphadenopathy LUNGS: Breath sounds clear to auscultation bilaterally and equal. No wheezes rales or rhonchi. HEART: Regular rate and rhythm without murmurs ABDOMEN: Soft, mild suprapubic tenderness, normoactive bowel sounds. No guarding, no rebound. No masses appreciated. EXTREMITIES: Normal range of motion, no pitting or edema. No cyanosis. NEUROLOGICAL: Cranial nerves grossly intact. Normal speech, normal gait. Normal sensory and motor exams. PSYCH: Normal mood, normal affect. SKIN: Warm, Dry, normal turgor, no rashes or lesions noted. Course - Re-evaluation Re-evalutation: Patient appears well. Her test was negative and her RLQ abdomen is completely soft and nontender. She has evidence of a possible urinary tract infection. With the mild suprapubic tenderness, leukocytosis and equivocal urine results, will begin Macrobid for UTI. Urine culture sent. Instructed her to follow-up with her primary care physician. - Vital Signs Vital signs: Temp Pulse Resp BP Pulse Ox 97.9 F 79 18 114/82 100 05/17/17 16:56 05/17/17 16:56 05/17/17 16:56 05/17/17 16:56 05/17/17 16:56 - Laboratory Result Diagrams: 05/17/17 17:10 05/17/17 17:10 Laboratory results interpreted by me: 05/17/17 05/17/17 17:10 18:34 WBC 12.3 H RBC 5.29 H MCV 78 L MCH 24.8 L MCHC 31.8 L RDW 14.8 H Ur Leukocyte Esterase MODERATE H Discharge - Discharge Clinical Impression: Abdominal pain Qualifiers: Abdominal location: unspecified location Qualified Code(s): R10.9 - Unspecified abdominal pain UTI (urinary tract infection) Qualifiers: Urinary tract infection type: site unspecified Hematuria presence: without hematuria Qualified Code(s): N39.0 - Urinary tract infection, site not specified Condition: Stable Disposition: HOME, SELF-CARE Additional Instructions: ABDOMINAL PAIN: There are many causes of abdominal pain. Pain can mean a serious problem requiring surgery (such as appendicitis). It can also be an innocent problem that goes away on its own (such as a viral infection). Often, time must pass to determine the cause of pain. The physician does not feel that hospitalization is necessary, at present. Things may change within the next 24 hours. Call the doctor or come back for re- examination if any problems occur, such as: (1) Pain that becomes more severe, steady, or becomes concentrated in one specific area. Also, pain that is more severe with movement or coughing. (2) Vomiting that persists or becomes more frequent. (3) Blood in the vomitus, urine, or bowel movements. Blood in the stool may have a tarry or black appearance. (4) Shaking chills or fever greater than 100 degrees F. (5) The abdomen becomes more distended or swollen. (6) Bowel movements cease. (7) Failure to improve as expected. NORMAL EXAM AND WORKUP: At this time, your examination and workup show no significant abnormality. No significant abnormal physical findings are noted. All laboratory, EKG, and imaging (x-ray, CT scans, ultrasound) studies that were ordered show no significant abnormality. Although your examination and all studies that were ordered showed no significant abnormal finding, there are no examinations and no studies that are 100% accurate. There is always the possibility that some abnormality could exist and not be detected with physical examination or within the limits and capabilities of laboratory and other studies. You should return or follow up as you were instructed on your visit today for further evaluation if your symptoms do not resolve. FOLLOW-UP CARE: If you have been referred to a physician for follow-up care, call the physician s office for an appointment as you were instructed or within the next two days. If you experience worsening or a significant change in your symptoms, notify the physician immediately or return to the Emergency Department at any time for re-evaluation. URINARY TRACT INFECTION: Your evaluation indicates that you have a urinary tract infection. This is due to germs growing in the bladder. This is a common problem. This infection usually responds quickly to antibiotics. Your antibiotic should be taken exactly as prescribed. Drink plenty of fluids -- three to four quarts a day. Occasionally, a bladder anesthetic will be prescribed to help stop the feeling of urgency until the antibiotic has a chance to clear the infection. This may cause your urine to be dark orange. Certain urine infections require a culture. If the doctor obtained a culture, the results will be back in two days. You should call to see if a change in treatment is needed. A repeat urinalysis after you finish treatment is often recommended. The physician will let you know if further testing is required. Call the doctor if you develop fever, chills, flank pain, inability to urinate, or blood in the urine. ANTIBIOTIC THERAPY: You have been given an antibiotic prescription. It's important that you take all the medication, unless instructed otherwise by your physician. Failure to complete the entire course can result in relapse of your condition. Common side effects of antibiotics include nausea, intestinal cramping, or diarrhea. Women may develop vaginal yeast infections, and babies can get yeast (thrush) in the mouth following the use of antibiotics. Contact your physician if you develop significant side effects from this medication. Allergy to this antibiotic can result in hives, wheezing, faintness, or itching. If symptoms of allergy occur, stop the medication and call the doctor. NITROFURANTOIN (MACRODANTIN, MACROBID): You have received a prescription for nitrofurantoin (Macrodantin). This antibiotic is used for urinary tract infections. Women who are or nursing should notify the physician before taking this medicine. If you have ever had a problem caused by this medication in the past, be sure the physician is aware of it. Common side effects of this medicine include nausea, vomiting, or decreased appetite. Notify your physician if these side effects become severe. Immediately stop this medicine and call the physician if you develop cough , shortness of breath, chest pain, weakness, jaundice (yellow color of the skin and whites of the eyes), or a skin rash. FOLLOW-UP CARE: If you have been referred to a physician for follow-up care, call the physician s office for an appointment as you were instructed or within the next two days. If you experience worsening or a significant change in your symptoms, notify the physician immediately or return to the Emergency Department at any time for re-evaluation. Prescriptions: Nitrofurantoin/Nitrofuran Mac [Macrobid 100 mg Capsule] 1 tab PO BID #10 capsule
[2017-05-17 17:32] LABS: ABSOLUTE BASOPHILS # (AUTO) 0.1 10^3/uL (0.0-0.2); ABSOLUTE EOSINOPHILS # (AUTO) 0.3 10^3/uL (0.0-0.6); ABSOLUTE LYMPHOCYTES (AUTO) 3.2 10^3/uL (0.5-4.7); ABSOLUTE MONOCYTES (AUTO) 0.8 10^3/uL (0.1-1.4); ABSOLUTE NEUT (AUTO) 7.9 10^3/uL (1.7-8.2); BASOPHILS % (AUTO) 0.5 % (0-2); EOSINOPHILS % (AUTO) 2.6 % (0-6); HEMATOCRIT 41.4 % (36.0-47.0); HEMOGLOBIN 13.1 g/dL (12.0-15.5); HGB HCT DIFFERENCE -2.1; LYMPHOCYTES % (AUTO) 26.3 % (13-45); MEAN CORPUSCULAR HEMOGLOBIN 24.8 pg (27.0-33.4); MEAN CORPUSCULAR HGB CONC 31.8 g/dL (32.0-36.0); MEAN CORPUSCULAR VOLUME 78 fl (80-97); MONOCYTES % (AUTO) 6.3 % (3-13); RED BLOOD COUNT 5.29 10^6/uL (3.72-5.28); RED CELL DISTRIBUTION WIDTH 14.8 % (11.5-14.0); SEGMENTED NEUTROPHILS % (AUTO) 64.3 % (42-78); WHITE BLOOD COUNT 12.3 10^3/uL (4.0-10.5)
[2017-05-17 17:56] LABS: ALANINE AMINOTRANSFERASE 30 U/L (9-52); ALBUMIN 4.4 g/dL (3.5-5.0); ALKALINE PHOSPHATASE 66 U/L (38-126); ANION GAP 11 (5-19); ASPARTATE AMINO TRANSFERASE 22 U/L (14-36); BILIRUBIN,DIRECT 0.3 mg/dL (0.0-0.4); BILIRUBIN,TOTAL 0.4 mg/dL (0.2-1.3); BLOOD UREA NITROGEN 8 mg/dL (7-20); CALCIUM 9.9 mg/dL (8.4-10.2); CARBON DIOXIDE 24 mmol/L (22-30); CHLORIDE 104 mmol/L (98-107); CREATININE RESULT 0.59 mg/dL (0.52-1.25); GLUCOSE 82 mg/dL (75-110); LIPASE 156.7 U/L (23-300); POTASSIUM 4.4 mmol/L (3.6-5.0); SODIUM 138.8 mmol/L (137-145); TOTAL PROTEIN 7.9 g/dL (6.3-8.2)
[2017-05-17 19:02] LABS: APPEARANCE,URINE CLOUDY; BILIRUBIN,URINE NEGATIVE (NEGATIVE); GLUCOSE, URINE NEGATIVE (NEGATIVE); KETONES,URINE NEGATIVE (NEGATIVE); LEUKOCYTE ESTERASE,URINE MODERATE (NEGATIVE); NITRITE,URINE NEGATIVE (NEGATIVE); PROTEIN,URINE NEGATIVE (NEGATIVE); URINE SPECIFIC GRAVITY 1.014; UROBILINOGEN,URINE NEGATIVE mg/dL (<2.0)
[2017-05-17] MEDS ORDERED: NITROFURANTOIN MONOHYD/M-CRYST 100 MG CAPSULE PO ONE (19:09)
[2017-05-17 19:25] VITALS: BP 110/68
== END 2017-05-17 19:25 | disposition home or self-care (01) ==
LOC: ER 16:45
DX: N39.0 Urinary tract infection, site not specified (principal); R10.9 Unspecified abdominal pain; R10.30 Lower abdominal pain, unspecified; R11.2 Nausea with vomiting, unspecified; R42 Dizziness and giddiness
CPT/HCPCS: 99284; 36415; 84702; 83690; 85025; 80053; 81001; J8499

== ENCOUNTER 2017-06-17 12:47 | Emergency (ER) | payer SELFPAY ==
[2017-06-17 14:10] LABS: ABSOLUTE EOSINOPHILS # (AUTO) 0.2 10^3/uL (0.0-0.6); ABSOLUTE LYMPHOCYTES (AUTO) 2.9 10^3/uL (0.5-4.7); ABSOLUTE MONOCYTES (AUTO) 0.5 10^3/uL (0.1-1.4); BASOPHILS % (AUTO) 0.5 % (0-2); EOSINOPHILS % (AUTO) 1.9 % (0-6); HEMATOCRIT 37.8 % (36.0-47.0); HEMOGLOBIN 12.4 g/dL (12.0-15.5); HGB HCT DIFFERENCE -0.6; LYMPHOCYTES % (AUTO) 30.1 % (13-45); MEAN CORPUSCULAR HEMOGLOBIN 25.5 pg (27.0-33.4); MEAN CORPUSCULAR HGB CONC 32.8 g/dL (32.0-36.0); MEAN CORPUSCULAR VOLUME 78 fl (80-97); MONOCYTES % (AUTO) 5.3 % (3-13); RED BLOOD COUNT 4.86 10^6/uL (3.72-5.28); RED CELL DISTRIBUTION WIDTH 15.9 % (11.5-14.0); SEGMENTED NEUTROPHILS % (AUTO) 62.2 % (42-78); WHITE BLOOD COUNT 9.6 10^3/uL (4.0-10.5)
[2017-06-17 14:13] LABS: APPEARANCE,URINE SLIGHTLY-CLOUDY; BILIRUBIN,URINE NEGATIVE (NEGATIVE); GLUCOSE, URINE NEGATIVE (NEGATIVE); KETONES,URINE NEGATIVE (NEGATIVE); LEUKOCYTE ESTERASE,URINE TRACE (NEGATIVE); NITRITE,URINE NEGATIVE (NEGATIVE); PROTEIN,URINE NEGATIVE (NEGATIVE); URINE SPECIFIC GRAVITY 1.028; UROBILINOGEN,URINE NEGATIVE mg/dL (<2.0)
[2017-06-17 14:25] LABS: ALANINE AMINOTRANSFERASE 24 U/L (9-52); ALBUMIN 4.1 g/dL (3.5-5.0); ALKALINE PHOSPHATASE 58 U/L (38-126); ANION GAP 11 (5-19); ASPARTATE AMINO TRANSFERASE 17 U/L (14-36); BILIRUBIN,DIRECT 0.3 mg/dL (0.0-0.4); BILIRUBIN,TOTAL 0.5 mg/dL (0.2-1.3); BLOOD UREA NITROGEN 10 mg/dL (7-20); CALCIUM 9.1 mg/dL (8.4-10.2); CARBON DIOXIDE 23 mmol/L (22-30); CHLORIDE 105 mmol/L (98-107); CREATININE RESULT 0.59 mg/dL (0.52-1.25); GLUCOSE 87 mg/dL (75-110); LIPASE 151.1 U/L (23-300); SODIUM 138.8 mmol/L (137-145); TOTAL PROTEIN 7.5 g/dL (6.3-8.2)
[2017-06-17 14:32] LABS: ADD ON TESTING BLD IN LAB ACKNOWLEDGE
--- NOTE | 2017-06-17 14:41 | ER Document Report ---
ED GI/ - General Chief Complaint: Abdominal Pain Stated Complaint: ABDOMINAL PAIN Mode of Arrival: Ambulatory Information source: Patient Notes: Patient presents complaining of lower pelvic pain off and on that at present is gone. Patient reports nausea and vomiting and diarrhea that started yesterday. Patient vomited 2 yesterday with none today and had diarrhea only one episode today. Patient states she did have a positive home test. Patient denies any vaginal bleeding or discharge. Patient states that she might be only about 2 weeks . TRAVEL OUTSIDE OF THE [place] IN LAST 30 DAYS: No - HPI Patient complains to provider of: Diarrhea, Pelvic pain, , Vomiting Onset: Yesterday Timing/Duration: Gradual Quality of pain: Cramping Severity at maximum: Mild Severity in ED: None Pain Level: Denies Context: Vaginal bleeding (Compared to normal period): None Sexual history: Active Associated symptoms: Diarrhea, Nausea, Vomiting. denies: Loss of appetite, Urinary hesitancy, Urinary frequency, Urinary retention, Urinary urgency, Vaginal discharge Exacerbated by: Denies Relieved by: Denies Similar symptoms previously: Yes Recently seen / treated by doctor: No - Related Data Allergies/Adverse Reactions: peanut Allergy (Verified 05/17/17 16:55) Penicillins Allergy (Verified 05/17/17 16:55) Past Medical History - General Information source: Patient Last Menstrual Period: 05/14/2017 - Social History Smoking Status: Never Smoker Chew tobacco use (# tins/day): No Frequency of alcohol use: Social Drug Abuse: None Occupation: None Lives with: Spouse/Significant other Family History: None - Past Medical History Cardiac Medical History: Reports: Hx Heart Murmur Renal/ Medical History: Denies: Hx Peritoneal Dialysis Psychiatric Medical History: Reports: Hx Anxiety Infectious Medical History: Denies: Hx MRSA Surgical Hx: Negative - Immunizations Immunizations up to date: Yes Hx Diphtheria, Pertussis, Tetanus Vaccination: Yes Review of Systems - Review of Systems Constitutional: No symptoms reported. denies: Fever EENT: No symptoms reported Cardiovascular: No symptoms reported. denies: Chest pain Respiratory: No symptoms reported. denies: Cough, Short of breath Gastrointestinal: Abdominal pain - Now resolved, Diarrhea, Nausea, Vomiting - Yesterday. denies: Black stools, Rectal bleeding Genitourinary: No symptoms reported. denies: Dysuria, Flank pain Female Genitourinary: . denies: Vaginal discharge, Vaginal bleeding Musculoskeletal: No symptoms reported. denies: Back pain Skin: No symptoms reported Hematologic/Lymphatic: No symptoms reported Neurological/Psychological: No symptoms reported Physical Exam - Vital signs Vitals: Temp Pulse Resp BP Pulse Ox 98.5 F 76 16 126/72 H 100 06/17/17 12:50 06/17/17 12:50 06/17/17 12:50 06/17/17 12:50 06/17/17 12:50 - General General appearance: Appears well, Alert In distress: None - HEENT Head: Normocephalic, Atraumatic Eyes: Normal Nasal: Normal Mouth/Lips: Normal Mucous membranes: Normal Neck: Normal, Supple - Respiratory Respiratory status: No respiratory distress Chest status: Nontender Breath sounds: Normal. No: Rales, Rhonchi, Stridor, Wheezing Chest palpation: Normal - Cardiovascular Rhythm: Regular Heart sounds: S1 appreciated, S2 appreciated Murmur: No - Abdominal Inspection: Normal Distension: No distension Bowel sounds: Normal Tenderness: Nontender Organomegaly: No organomegaly - Genitourinary External exam: Normal Speculum exam: Normal, Cervix closed. No: Vaginal discharge Vaginal bleeding: None Bimanuel exam: Adnexal tenderness Notes: pct Linette as standby - Back Back: Normal, Nontender. No: CVA tenderness - Extremities General upper extremity: Normal inspection, Normal ROM General lower extremity: Normal inspection, Normal ROM - Neurological Neuro grossly intact: Yes Cognition: Normal [place] Coma Scale Eye Opening: Spontaneous Trey Coma Scale Verbal: Oriented [place] Coma Scale Motor: Obeys Commands [place] Coma Scale Total: 15 - Psychological Associated symptoms: Normal affect, Normal mood - Skin Skin Temperature: Warm Skin Moisture: Dry Skin Color: Normal Course - Vital Signs Vital signs: Temp Pulse Resp BP Pulse Ox 98.6 F 78 20 115/68 100 06/17/17 16:10 06/17/17 16:10 06/17/17 16:10 06/17/17 16:10 06/17/17 16:10 - Laboratory Result Diagrams: 06/17/17 13:56 06/17/17 13:56 Laboratory results interpreted by me: 06/17/17 06/17/17 06/17/17 13:56 13:56 13:56 MCV 78 L MCH 25.5 L RDW 15.9 H Serum HCG, Qual POSITIVE H Beta HCG, Quant Ur Leukocyte Esterase TRACE H 06/17/17 13:56 MCV MCH RDW Serum HCG, Qual Beta HCG, Quant 51.55 H Ur Leukocyte Esterase 06/17/17 15:49 Labs- Entire Visit 06/17/17 06/17/17 06/17/17 13:56 13:56 13:56 WBC 9.6 RBC 4.86 Hgb 12.4 Hct 37.8 MCV 78 L MCH 25.5 L MCHC 32.8 RDW 15.9 H Plt Count 247 Seg Neutrophils % 62.2 Lymphocytes % 30.1 Monocytes % 5.3 Eosinophils % 1.9 Basophils % 0.5 Absolute Neutrophils 6.0 Absolute Lymphocytes 2.9 Absolute Monocytes 0.5 Absolute Eosinophils 0.2 Absolute Basophils 0.0 Sodium 138.8 Potassium 4.0 Chloride 105 Carbon Dioxide 23 Anion Gap 11 BUN 10 Creatinine 0.59 Est GFR ( Amer) > 60 Est GFR (Non-Af Amer) > 60 Glucose 87 Calcium 9.1 Total Bilirubin 0.5 Direct Bilirubin 0.3 Indirect Bilirubin Not Reportable Neonat Total Bilirubin Not Reportable AST 17 ALT 24 Alkaline Phosphatase 58 Total Protein 7.5 Albumin 4.1 Lipase 151.1 Serum HCG, Qual POSITIVE H Beta HCG, Quant Total Beta HCG Urine Color Urine Appearance Urine pH Ur Specific [place] Urine Protein Urine Glucose (UA) Urine Ketones Urine Blood Urine Nitrite Urine Bilirubin Urine Urobilinogen Ur Leukocyte Esterase Urine WBC (Auto) Urine RBC (Auto) Urine Bacteria (Auto) Squamous Epi Cells Auto Urine Mucus (Auto) Urine Ascorbic Acid Epi Cells (Wet Prep) Bacteria (Wet Prep) Trichomonas (Wet Prep) Vaginal WBC Vaginal Yeast 06/17/17 06/17/17 06/17/17 13:56 13:56 14:35 WBC RBC Hgb Hct MCV MCH MCHC RDW Plt Count Seg Neutrophils % Lymphocytes % Monocytes % Eosinophils % Basophils % Absolute Neutrophils Absolute Lymphocytes Absolute Monocytes Absolute Eosinophils Absolute Basophils Sodium Potassium Chloride Carbon Dioxide Anion Gap BUN Creatinine Est GFR ( Amer) Est GFR (Non-Af Amer) Glucose Calcium Total Bilirubin Direct Bilirubin Indirect Bilirubin Neonat Total Bilirubin AST ALT Alkaline Phosphatase Total Protein Albumin Lipase Serum HCG, Qual Beta HCG, Quant 51.55 H Total Beta HCG POSITIVE Urine Color YELLOW Urine Appearance SLIGHTLY-CLOUDY Urine pH 5.0 Ur Specific [place] 1.028 Urine Protein NEGATIVE Urine Glucose (UA) NEGATIVE Urine Ketones NEGATIVE Urine Blood NEGATIVE Urine Nitrite NEGATIVE Urine Bilirubin NEGATIVE Urine Urobilinogen NEGATIVE Ur Leukocyte Esterase TRACE H Urine WBC (Auto) 6 Urine RBC (Auto) 2 Urine Bacteria (Auto) TRACE Squamous Epi Cells Auto 10 Urine Mucus (Auto) MOD Urine Ascorbic Acid NEGATIVE Epi Cells (Wet Prep) 4+ EPITHELIALS SEEN Bacteria (Wet Prep) 4+ BACTERIA SEEN Trichomonas (Wet Prep) NO TRICHOMONAS SEEN Vaginal WBC RARE WBCS SEEN Vaginal Yeast NO YEAST SEEN 06/17/17 15:55 - Diagnostic Test Radiology reviewed: Reports reviewed Discharge - Discharge Clinical Impression: Bacterial vaginosis, test positive, Vomiting and diarrhea UTI (urinary tract infection) Qualifiers: Urinary tract infection type: site unspecified Hematuria presence: without hematuria Qualified Code(s): N39.0 - Urinary tract infection, site not specified Abdominal pain Qualifiers: Abdominal location: lower abdomen, unspecified Qualified Code(s): R10.30 - Lower abdominal pain, unspecified Condition: Stable Disposition: HOME, SELF-CARE Instructions: Nitrofurantoin ([facility]), Urinary Tract Infection ([facility]), Nausea or Vomiting, Nonspecific ([facility]), Diarrhea, Nonspecific ([facility]), Metronidazole ([facility]), Vaginosis, Bacterial ([facility]), Ectopic Precaution ([facility]) Additional Instructions: Return immediately for any new or worsening symptoms Followup with your primary care provider, call tomorrow to make a followup appointment Cultures are pending, we will call if you need any different treatment Return in 2 days to have repeat blood work performed in the lab Follow-up with the health department to establish care You may take Benadryl [id number] to help with your nausea and vomiting symptoms Prescriptions: Metronidazole [Flagyl 500 mg Tablet] 500 mg PO BID #14 tablet Nitrofurantoin/Nitrofuran Mac [Macrobid 100 mg Capsule] 100 mg PO BID #10 capsule Forms: Follow-Up Laboratory Testing [facility] - Follow up tomorrow
--- NOTE | 2017-06-17 15:33 | RADIOLOGY REPORT (SQ) ---
EXAM DESCRIPTION: U/S OB TRANSVAGINAL W/O DOP COMPLETED DATE/TIME: 06/17/2017 3:22 pm REASON FOR STUDY: pelvic pain COMPARISON: None. TECHNIQUE: Transvaginal static and realtime grayscale images acquired of the pelvis. Additional ines cted spectral and color Doppler images recorded. All images stored on PACs. [id number] LIMITATIONS: None. FINDINGS: UTERUS: No masses. No anomalies. GESTATIONAL SAC: Not identified YOLK SAC: Not identified POLE: Not identified RIGHT ADNEXA: Normal ovary with normal vascular flow. No adnexal free fluid. No adnexal masses. LEFT ADNEXA: Normal ovary with normal vascular flow. No adnexal free fluid. No adnexal masses. FREE FLUID: None. OTHER: No other significant finding. IMPRESSION: No IUP is identified. BHCG LEVEL APPROPRIATE FOR ENDOMETRIAL FINDINGS. CONSIDER F/U BHCG AND/OR ULTRASOUND FOR VERIFICATION AND TO EXCLUDE ECTOPIC . Trimester of : First - 0 to 13 weeks. TECHNICAL DOCUMENTATION: JOB ID: [id number] [employer]- All Rights Reserved
[2017-06-17 16:11] VITALS: BP 115/68
[2017-06-17 16:15] LABS: CHLAM PCR NOT DETECTED (NOT DETECT)
== END 2017-06-17 16:11 | disposition home or self-care (01) ==
LOC: ER 12:47
DX: N76.0 Acute vaginitis (principal); B96.89 Other specified bacterial agents as the cause of diseases classified elsewhere; N39.0 Urinary tract infection, site not specified; R10.2 Pelvic and perineal pain; R11.2 Nausea with vomiting, unspecified; R19.7 Diarrhea, unspecified; Z32.01 Encounter for pregnancy test, result positive; Z91.010 Allergy to peanuts
CPT/HCPCS: 36415; 76817; 80053; 81001; 83690; 84702; 84703; 85025; 87086; 87088; 87186; 87210; 87491; 87591; 99284

== ENCOUNTER 2017-06-26 20:19 | Emergency (ER) | payer SELFPAY ==
[2017-06-26 20:25] VITALS: BP 119/82
== END 2017-06-26 21:20 | disposition left against medical advice (07) ==
LOC: ER 20:19
DX: Z53.21 Procedure and treatment not carried out due to patient leaving prior to being seen by health care provider (principal)

== ENCOUNTER 2017-06-30 11:03 | Emergency (ER) | payer SELFPAY ==
[2017-06-30] MEDS ORDERED: DIPHENHYDRAMINE HCL 50 MG/ML VIAL IV ONE (11:20)
[2017-06-30] MEDS ORDERED: METOCLOPRAMIDE HCL INJ/PF 10 MG/2 ML SDV IV ONE (11:20)
[2017-06-30] MEDS ORDERED: NORMAL SALINE 1000 ML 1,000 ML IV PRN (11:20)
--- NOTE | 2017-06-30 11:21 | ER Document Report ---
ED Medical Screen (RME) - General Chief Complaint: Abdominal Pain Stated Complaint: DIZZINESS,NAUSEA Time Seen by Provider: 06/30/17 11:17 Mode of Arrival: Ambulatory Information source: Patient TRAVEL OUTSIDE OF THE [place] IN LAST 30 DAYS: No - HPI Patient complains to provider of: Abdominal pain, shoulder pain, nausea, lightheaded Notes: 06/30/17 11:20 Patient is a 22-year-old female who is with 2 previous miscarriages, presenting to the emergency room complaining of diffuse and changing abdominal pain with nausea, lightheadedness, and left shoulder pain, symptoms have been going on for the past few days, she was seen in this emergency room approximately 2 weeks ago and had a positive test, quantitative beta- hCG was only 55 at that time and therefore ultrasound did not reveal an IUP - Related Data Allergies/Adverse Reactions: peanut Allergy (Verified 06/30/17 11:08) Penicillins Allergy (Verified 06/30/17 11:08) Past Medical History - Past Medical History Cardiac Medical History: Reports: Hx Heart Murmur Renal/ Medical History: Denies: Hx Peritoneal Dialysis Psychiatric Medical History: Reports: Hx Anxiety Infectious Medical History: Denies: Hx MRSA - Immunizations Immunizations up to date: Yes Hx Diphtheria, Pertussis, Tetanus Vaccination: Yes Physical Exam - Vital signs Vitals: Temp Pulse Resp BP Pulse Ox 97.6 F 89 18 110/72 98 06/30/17 11:10 06/30/17 11:10 06/30/17 11:10 06/30/17 11:10 06/30/17 11:10 Course - Vital Signs Vital signs: Temp Pulse Resp BP Pulse Ox 97.6 F 89 18 110/72 98 06/30/17 11:10 06/30/17 11:10 06/30/17 11:10 06/30/17 11:10 06/30/17 11:10
--- NOTE | 2017-06-30 12:02 | ER Document Report ---
ED GI/ - General Mode of Arrival: Ambulatory TRAVEL OUTSIDE OF THE [place] IN LAST 30 DAYS: No - HPI Patient complains to provider of: Abdominal pain - cramping, Vomiting : 6 Para: 3 Sexual history: Active Associated symptoms: Other - see above <ANH MCGRATH - Last Filed: 06/30/17 12:37> <LIDIA MARINELLI - Last Filed: 07/01/17 13:17> - General Chief Complaint: Abdominal Pain Stated Complaint: DIZZINESS,NAUSEA Time Seen by Provider: 06/30/17 11:17 Notes: Patient is a 22 year old female who presents to the ED with complaints of shoulder pain, nausea, vomiting and patient is currently . Patient is also dizzy. Patient was seen in the ED 2 weeks ago and had a positive test, she was told to come back in 48 hours for a recheck however states she was trying to wait for her insurance to kick in and just chose to come in today due to symptoms worsening. Patient denies pain, vaginal bleeding or pain or bleeding with intercourse. She has had some cramping she states are like menstrual cramps. Patient is with 2 miscarriages. Patients last menstrual period was last month. (ANH MCGRATH) - Related Data Allergies/Adverse Reactions: peanut Allergy (Verified 06/30/17 11:08) Penicillins Allergy (Verified 06/30/17 11:08) Past Medical History - General Information source: Patient - Social History Smoking Status: Unknown if Ever Smoked Family History: None - Past Medical History Cardiac Medical History: Reports: Hx Heart Murmur Renal/ Medical History: Denies: Hx Peritoneal Dialysis Psychiatric Medical History: Reports: Hx Anxiety Infectious Medical History: Denies: Hx MRSA - Immunizations Immunizations up to date: Yes Hx Diphtheria, Pertussis, Tetanus Vaccination: Yes <ANH MCGRATH - Last Filed: 06/30/17 12:37> Review of Systems - Review of Systems Constitutional: No symptoms reported EENT: No symptoms reported Cardiovascular: See HPI, Dizziness Respiratory: No symptoms reported Gastrointestinal: See HPI, Abdominal pain - cramping, Nausea, Vomiting Genitourinary: No symptoms reported Female Genitourinary: See HPI, Last menstrual period - last month, . denies: Vaginal bleeding, Painful intercourse Musculoskeletal: See HPI, Joint pain - shoulder pain Skin: No symptoms reported Hematologic/Lymphatic: No symptoms reported Neurological/Psychological: No symptoms reported <ANH MCGRATH - Last Filed: 06/30/17 12:37> Physical Exam - General General appearance: Appears well, Alert In distress: None - HEENT Head: Normocephalic, Atraumatic Eyes: Normal Extraocular movements intact: Yes Pupils: PERRL - Respiratory Respiratory status: No respiratory distress Breath sounds: Normal - Cardiovascular Rhythm: Regular Heart sounds: Normal auscultation Murmur: No - Abdominal Inspection: Normal Distension: No distension Tenderness: Nontender - Back Back: Normal, Nontender - Extremities General upper extremity: Normal inspection, Normal strength General lower extremity: Normal inspection, Normal strength - Neurological Neuro grossly intact: Yes - Psychological Associated symptoms: Normal affect, Normal mood - Skin Skin Temperature: Warm Skin Moisture: Dry Skin Color: Normal <ANH MCGRATH - Last Filed: 06/30/17 12:37> - Vital signs Vitals: Temp Pulse Resp BP Pulse Ox 97.6 F 89 18 110/72 98 06/30/17 11:10 06/30/17 11:10 06/30/17 11:10 06/30/17 11:10 06/30/17 11:10 Course - Laboratory Result Diagrams: 06/30/17 11:36 06/30/17 11:36 <ANH MCGRATH - Last Filed: 06/30/17 12:37> - Laboratory Result Diagrams: 06/30/17 11:36 06/30/17 11:36 <LIDIA MARINELLI - Last Filed: 07/01/17 13:17> - Re-evaluation Re-evalutation: 06/30/17 14:41 Patient presents emergency department with chief complaint of nausea vomiting intermittently throughout her early . She was here 2 weeks ago her client was very low having some pain I told her to come back in 48 hours and she came back 2 weeks later. She is denying any pain right now she occasionally gets cramping but no bleeding. They gave her Reglan out front which is she had a reaction to it was very fidgety and agitated. She is hemodynamically stable no acute abdominal guarding rebound rigidity denies any pelvic pain or discharge. Beta digit hCG came back at 11,452 with an ultrasound report that said it did not have the beta-hCG back to correlate I called Dr. Fontenot personally gave him a beta hCG and compared to the ultrasound that said that this was consistent with what he expects to see with that quadrant. I explained this to the patient I do not think she clinically has an ectopic she needs to follow-up in 1-2 days with primary care FACILITIES ASSISTANT return immediately for pain bleeding or any other concerns by the above treatment (LIDIA MARINELLI) - Vital Signs Vital signs: Temp Pulse Resp BP Pulse Ox 97.5 F 82 16 107/70 99 06/30/17 15:01 06/30/17 15:01 06/30/17 15:01 06/30/17 15:01 06/30/17 15:01 - Laboratory Laboratory results interpreted by me: 06/30/17 06/30/17 06/30/17 11:36 11:36 11:36 Hgb 11.9 L MCV 78 L MCH 25.8 L RDW 16.2 H Beta HCG, Quant 44360.00 H Urine Urobilinogen 2.0 H Discharge <ANH MCGRATH - Last Filed: 06/30/17 12:37> <LIDIA MARINELLI - Last Filed: 07/01/17 13:17> - Discharge Clinical Impression: Early stage of Condition: Stable Disposition: HOME, SELF-CARE Additional Instructions: You have blood work to show that you are in your early the ultrasound correlates according to the radiologist with what he should see during this early portion of your . It is not a definitive ultrasound as you are very early in the course. I am giving you information to follow-up with an OB/ ACCOUNTS PAYABLE CLERK physician return immediately for pain bleeding or any other concerns Referrals: [facility] [Provider Group] - Follow up in 3-5 days Scribe Attestation: 06/30/17 14:41 I personally performed the services described in the documentation reviewed the documentation recorded by my scribe in my presence and it accurately and completely records my words and actions (LIDIA MARINELLI) Scribe Documentation - Scribe Written by Aldo:: aldo Curiel, 06/30/2017, 1215 acting as scribe for :: Harsh <ANH MCGRATH - Last Filed: 06/30/17 12:37>
[2017-06-30 12:03] LABS: APPEARANCE,URINE CLEAR; BILIRUBIN,URINE NEGATIVE (NEGATIVE); GLUCOSE, URINE NEGATIVE (NEGATIVE); KETONES,URINE NEGATIVE (NEGATIVE); LEUKOCYTE ESTERASE,URINE NEGATIVE (NEGATIVE); NITRITE,URINE NEGATIVE (NEGATIVE); PROTEIN,URINE NEGATIVE (NEGATIVE); URINE SPECIFIC GRAVITY 1.027
[2017-06-30 12:04] LABS: ABSOLUTE EOSINOPHILS # (AUTO) 0.1 10^3/uL (0.0-0.6); ABSOLUTE LYMPHOCYTES (AUTO) 1.7 10^3/uL (0.5-4.7); ABSOLUTE MONOCYTES (AUTO) 0.6 10^3/uL (0.1-1.4); ABSOLUTE NEUT (AUTO) 3.4 10^3/uL (1.7-8.2); BASOPHILS % (AUTO) 0.7 % (0-2); EOSINOPHILS % (AUTO) 1.5 % (0-6); HEMATOCRIT 36.2 % (36.0-47.0); HEMOGLOBIN 11.9 g/dL (12.0-15.5); HGB HCT DIFFERENCE -0.5; LYMPHOCYTES % (AUTO) 29.6 % (13-45); MEAN CORPUSCULAR HEMOGLOBIN 25.8 pg (27.0-33.4); MEAN CORPUSCULAR VOLUME 78 fl (80-97); MONOCYTES % (AUTO) 10.4 % (3-13); RED BLOOD COUNT 4.62 10^6/uL (3.72-5.28); RED CELL DISTRIBUTION WIDTH 16.2 % (11.5-14.0); SEGMENTED NEUTROPHILS % (AUTO) 57.8 % (42-78); WHITE BLOOD COUNT 5.8 10^3/uL (4.0-10.5)
[2017-06-30 12:17] LABS: ALANINE AMINOTRANSFERASE 21 U/L (9-52); ALBUMIN 4.1 g/dL (3.5-5.0); ALKALINE PHOSPHATASE 55 U/L (38-126); ANION GAP 12 (5-19); ASPARTATE AMINO TRANSFERASE 19 U/L (14-36); BILIRUBIN,DIRECT 0.4 mg/dL (0.0-0.4); BILIRUBIN,TOTAL 0.4 mg/dL (0.2-1.3); BLOOD UREA NITROGEN 9 mg/dL (7-20); CALCIUM 9.5 mg/dL (8.4-10.2); CARBON DIOXIDE 23 mmol/L (22-30); CHLORIDE 106 mmol/L (98-107); CREATININE RESULT 0.59 mg/dL (0.52-1.25); GLUCOSE 80 mg/dL (75-110); LIPASE 135.3 U/L (23-300); POTASSIUM 4.4 mmol/L (3.6-5.0); SODIUM 140.9 mmol/L (137-145); TOTAL PROTEIN 7.1 g/dL (6.3-8.2)
--- NOTE | 2017-06-30 14:33 | RADIOLOGY REPORT (SQ) ---
EXAM DESCRIPTION: U/S OB TRANSVAG W/DOPPLER COMPLETED DATE/TIME: 06/30/2017 1:57 pm REASON FOR STUDY: abdominal pain COMPARISON: None. TECHNIQUE: Transvaginal static and realtime grayscale images acquired of the pelvis. Additional ines cted spectral and color Doppler images recorded. All images stored on PACs. bHCG: Not available. LIMITATIONS: None. FINDINGS: UTERUS: No masses. No anomalies. GESTATIONAL SAC: Sac diameter corresponds to 5 weeks 5 days. YOLK SAC: Yes POLE: No RIGHT ADNEXA: Normal ovary with normal vascular flow. No adnexal free fluid. No adnexal masses. LEFT ADNEXA: Normal ovary with normal vascular flow. No adnexal free fluid. No adnexal masses. FREE FLUID: Trace amount. OTHER: No other significant finding. IMPRESSION: POSSIBLE EARLY INTRAUTERINE . BHCG LEVEL NOT AVAILABLE FOR CORRELATION WITH US FINDINGS. CONSIDER F/U BHCG AND/OR ULTRASOUND FOR VERIFICATION AND TO EXCLUDE ECTOPIC . Trimester of : First - 0 to 13 weeks. TECHNICAL DOCUMENTATION: JOB ID: [id number] [employer]- All Rights Reserved
[2017-06-30 15:02] VITALS: BP 107/70
== END 2017-06-30 15:02 | disposition home or self-care (01) ==
LOC: ER 11:03
DX: R10.9 Unspecified abdominal pain (principal); R42 Dizziness and giddiness; R11.0 Nausea; M25.519 Pain in unspecified shoulder; R11.2 Nausea with vomiting, unspecified; Z3A.01 Less than 8 weeks gestation of pregnancy
CPT/HCPCS: 99284; 96361; 96374; 96375; 36415; 87086; 84702; 83690; 85025; 80053; 81001; 76817; 93976; J1200; J2765; J7030

== ENCOUNTER 2017-08-05 16:50 | Emergency (ER) | payer SELFPAY ==
[2017-08-05] MEDS ORDERED: ACETAMINOPHEN 325 MG TABLET PO ONE (17:40)
--- NOTE | 2017-08-05 17:40 | ER Document Report ---
ED Medical Screen (RME) - General Chief Complaint: Abdominal Pain Stated Complaint: STOMACH PAIN Time Seen by Provider: 08/05/17 17:33 Mode of Arrival: Ambulatory Information source: Patient TRAVEL OUTSIDE OF THE [place] IN LAST 30 DAYS: No - HPI Patient complains to provider of: Right lower quadrant/right pelvic pain Notes: 08/05/17 17:39 Patient is a 22-year-old female who is , currently approximately 12 weeks by dates, no care to date, presenting to the emergency room today complaining of sharp stabbing right lower quadrant/right pelvic pain that started approximately 45 minutes prior to arrival - Related Data Allergies/Adverse Reactions: peanut Allergy (Verified 08/05/17 17:25) Penicillins Allergy (Verified 08/05/17 17:25) Past Medical History - Past Medical History Cardiac Medical History: Reports: Hx Heart Murmur Renal/ Medical History: Denies: Hx Peritoneal Dialysis Psychiatric Medical History: Reports: Hx Anxiety Infectious Medical History: Denies: Hx MRSA - Immunizations Immunizations up to date: Yes Hx Diphtheria, Pertussis, Tetanus Vaccination: Yes Physical Exam - Vital signs Vitals: Temp Pulse Resp BP Pulse Ox 98 F 86 16 124/79 99 08/05/17 17:22 08/05/17 17:22 08/05/17 17:22 08/05/17 17:22 08/05/17 17:22 Course - Vital Signs Vital signs: Temp Pulse Resp BP Pulse Ox 98 F 86 16 124/79 99 08/05/17 17:22 08/05/17 17:22 08/05/17 17:22 08/05/17 17:22 08/05/17 17:22
[2017-08-05 18:20] LABS: APPEARANCE,URINE SLIGHTLY-CLOUDY; BILIRUBIN,URINE NEGATIVE (NEGATIVE); GLUCOSE, URINE NEGATIVE (NEGATIVE); KETONES,URINE NEGATIVE (NEGATIVE); LEUKOCYTE ESTERASE,URINE NEGATIVE (NEGATIVE); NITRITE,URINE NEGATIVE (NEGATIVE); PROTEIN,URINE NEGATIVE (NEGATIVE); URINE SPECIFIC GRAVITY 1.034
[2017-08-05 18:21] LABS: ABSOLUTE EOSINOPHILS # (AUTO) 0.1 10^3/uL (0.0-0.6); ABSOLUTE LYMPHOCYTES (AUTO) 1.8 10^3/uL (0.5-4.7); ABSOLUTE MONOCYTES (AUTO) 0.7 10^3/uL (0.1-1.4); ABSOLUTE NEUT (AUTO) 11.4 10^3/uL (1.7-8.2); BASOPHILS % (AUTO) 0.2 % (0-2); EOSINOPHILS % (AUTO) 0.9 % (0-6); HEMATOCRIT 37.1 % (36.0-47.0); HEMOGLOBIN 12.6 g/dL (12.0-15.5); HGB HCT DIFFERENCE 0.7; LYMPHOCYTES % (AUTO) 12.9 % (13-45); MEAN CORPUSCULAR HEMOGLOBIN 26.3 pg (27.0-33.4); MEAN CORPUSCULAR HGB CONC 33.9 g/dL (32.0-36.0); MEAN CORPUSCULAR VOLUME 78 fl (80-97); MONOCYTES % (AUTO) 5.1 % (3-13); RED BLOOD COUNT 4.79 10^6/uL (3.72-5.28); RED CELL DISTRIBUTION WIDTH 15.6 % (11.5-14.0); SEGMENTED NEUTROPHILS % (AUTO) 80.9 % (42-78)
[2017-08-05 18:27] LABS: WBC,URINE 0-1 /HPF
[2017-08-05 18:40] LABS: ALANINE AMINOTRANSFERASE 26 U/L (9-52); ALBUMIN 4.1 g/dL (3.5-5.0); ALKALINE PHOSPHATASE 60 U/L (38-126); ANION GAP 12 (5-19); ASPARTATE AMINO TRANSFERASE 15 U/L (14-36); BILIRUBIN,DIRECT 0.3 mg/dL (0.0-0.4); BILIRUBIN,TOTAL 0.3 mg/dL (0.2-1.3); BLOOD UREA NITROGEN 7 mg/dL (7-20); CALCIUM 9.6 mg/dL (8.4-10.2); CARBON DIOXIDE 24 mmol/L (22-30); CHLORIDE 103 mmol/L (98-107); CREATININE RESULT 0.53 mg/dL (0.52-1.25); GLUCOSE 94 mg/dL (75-110); LIPASE 148.3 U/L (23-300); POTASSIUM 3.8 mmol/L (3.6-5.0); SODIUM 138.6 mmol/L (137-145); TOTAL PROTEIN 7.3 g/dL (6.3-8.2)
--- NOTE | 2017-08-05 19:48 | RADIOLOGY REPORT (SQ) ---
EXAM DESCRIPTION: U/S [id number] TRNABD 1GES W/ODOP COMPLETED DATE/TIME: 08/05/2017 7:24 pm REASON FOR STUDY: pelvic pain COMPARISON: None. TECHNIQUE: Transabdominal static and realtime grayscale images acquired of the pelvis. Additional se lected spectral and color Doppler images recorded. All images stored on PACs. bHCG: Not available. LIMITATIONS: None. FINDINGS: FETUS: Living intrauterine . EGA: 11 weeks 2 days LUISA: 02/22/2010 FHR: 163 beats per minute. SUBCHORIONIC BLEED: No SIZE OF BLEED: Not applicable. UTERUS: No masses. No anomalies. CERVICAL LENGTH: 2.5 cm Closed. RIGHT ADNEXA: Ovary not identified. No adnexal free fluid. No adnexal masses. LEFT ADNEXA: Ovary not identified. No adnexal free fluid. No adnexal masses. FREE FLUID: None. OTHER: No other significant finding. IMPRESSION: LIVING INTRAUTERINE . EGA 11 weeks 2 days Trimester of : First - 0 to 13 weeks. TECHNICAL DOCUMENTATION: JOB ID: [id number] [employer]- All Rights Reserved
--- NOTE | 2017-08-05 20:56 | ER Document Report ---
ED GI/ - General Chief Complaint: Abdominal Pain Stated Complaint: STOMACH PAIN Time Seen by Provider: 08/05/17 17:33 Mode of Arrival: Ambulatory Notes: Patient is here because she has been having intermittent sharp pains in the right lower quadrant of her abdomen off and on for the past 2 weeks. There are days when she does not have this pain. Vision is approximately 3 months . She has not had any vaginal bleeding or spotting. Today, she had onset of the sharp pain she began to eat around 4:30 PM. The pain is worse with movement. Denies nausea or vomiting or diarrhea. Denies UTI symptoms. Denies fever. Patient is approximately 3 months . This is her sixth , 3 living children, 2 miscarriages. TRAVEL OUTSIDE OF THE [place] IN LAST 30 DAYS: No - Related Data Allergies/Adverse Reactions: peanut Allergy (Verified 08/05/17 17:25) Penicillins Allergy (Verified 08/05/17 17:25) Past Medical History - General Information source: Patient - Social History Smoking Status: Never Smoker Chew tobacco use (# tins/day): No Frequency of alcohol use: None Drug Abuse: None Family History: None, Reviewed & Not Pertinent Patient has suicidal ideation: No Patient has homicidal ideation: No - Past Medical History Cardiac Medical History: Reports: Hx Heart Murmur Psychiatric Medical History: Reports: Hx Anxiety Surgical Hx: Negative - Immunizations Immunizations up to date: Yes Hx Diphtheria, Pertussis, Tetanus Vaccination: Yes Review of Systems - Review of Systems Notes: REVIEW OF SYSTEMS: CONSTITUTIONAL : Denies fever. EENT: Denies eye, ear, nose or mouth or throat pain or other symptoms. CARDIOVASCULAR: Denies chest pain. RESPIRATORY: Denies cough, chest congestion, or shortness of breath. GASTROINTESTINAL: See HPI. GENITOURINARY: Denies difficulty or painful urinating, urinary frequency, blood in urine. MUSCULOSKELETAL: Denies back or neck pain. Denies joint pain or swelling. SKIN: Denies rash or skin lesions. NEUROLOGICAL: Denies LOC or altered mental status. Denies headache. Denies sensory loss or motor deficits. ALL OTHER SYSTEMS REVIEWED AND NEGATIVE. Physical Exam - Vital signs Vitals: Temp Pulse Resp BP Pulse Ox 98 F 86 16 124/79 99 08/05/17 17:22 08/05/17 17:22 08/05/17 17:22 08/05/17 17:22 08/05/17 17:22 Interpretation: Normal - Notes Notes: PHYSICAL EXAMINATION: GENERAL: Well-appearing, in no acute distress. HEAD: Atraumatic, normocephalic. EYES: Pupils equal round and reactive to light, extraocular movements intact. ENT: oropharynx clear without exudates. Moist mucous membranes. NECK: Normal range of motion, supple. LUNGS: Breath sounds clear and equal bilaterally. HEART: Regular rate and rhythm without murmurs. ABDOMEN: Soft, but tender towards the right lower quadrant of the abdomen and the lateral right pelvic region. No actual guarding and no rebound noted. BACK: No tenderness throughout entire back. EXTREMITIES: Normal range of motion without pain. NEUROLOGICAL: Normal speech, normal gait. Normal sensory, motor, and reflex exams. Awake, alert, and oriented x3. Cranial nerves normal. PSYCH: Normal mood, normal affect. SKIN: Warm, dry, no rashes. Course - Vital Signs Vital signs: Temp Pulse Resp BP Pulse Ox 98.1 F 76 20 116/77 99 08/05/17 20:57 08/05/17 20:57 08/05/17 20:57 08/05/17 20:57 08/05/17 20:57 - Laboratory Result Diagrams: 08/05/17 17:50 08/05/17 17:50 Laboratory results interpreted by me: 08/05/17 08/05/17 08/05/17 17:50 17:50 17:50 WBC 14.0 H MCV 78 L MCH 26.3 L RDW 15.6 H Seg Neutrophils % 80.9 H Lymphocytes % 12.9 L Absolute Neutrophils 11.4 H Beta HCG, Quant 695190.00 H Urine Urobilinogen 2.0 H - Diagnostic Test Radiology reviewed: Image reviewed, Reports reviewed - Ultrasound shows an 11 week, 2 day living, intrauterine normal heart rate, Without evidence of any bleeding or other abnormality. Discharge - Discharge Clinical Impression: , Abdominal pain Condition: Stable Disposition: HOME, SELF-CARE Additional Instructions: You are . care is best started as early in as possible. If you're unsure about continuing this , you should discuss this with your physician or with [facility] at [facility]. You should take only medications approved by your physician. Acetaminophen can safely be taken for minor pains. As a rule, medication for chronic conditions such as asthma or seizures can safely be continued. You should discuss with the physician every medicine you take. Any regular exercise program can be continued. Talk to your physician, however, before engaging in competitive or demanding sports. Alcohol, smoking, and "street drugs" are dangerous to your baby. Cocaine is especially dangerous. Don't use any illicit drugs! ABDOMINAL PAIN: There are many causes of abdominal pain. Pain can mean a serious problem requiring surgery (such as appendicitis). It can also be an innocent problem that goes away on its own (such as a viral infection). Often, time must pass to determine the cause of pain. The physician does not feel that hospitalization is necessary, at present. Things may change within the next 24 hours. Call the doctor or come back for re- examination if any problems occur, such as: (1) Pain that becomes more severe, steady, or becomes concentrated in one specific area. Also, pain that is more severe with movement or coughing. (2) Vomiting that persists or becomes more frequent. (3) Blood in the vomitus, urine, or bowel movements. Blood in the stool may have a tarry or black appearance. (4) Shaking chills or fever greater than 100 degrees F. (5) The abdomen becomes more distended or swollen. (6) Bowel movements cease. (7) Failure to improve as expected. NORMAL EXAM AND WORKUP: At this time, your examination and workup show no significant abnormality. No significant abnormal physical findings are noted. All laboratory, EKG, and imaging (x-ray, CT scans, ultrasound) studies that were ordered show no significant abnormality. Although your examination and all studies that were ordered showed no significant abnormal finding, there are no examinations and no studies that are 100% accurate. There is always the possibility that some abnormality could exist and not be detected with physical examination or within the limits and capabilities of laboratory and other studies. You should return or follow up as you were instructed on your visit today for further evaluation if your symptoms do not resolve. USE OF ACETAMINOPHEN (Tylenol): Acetaminophen may be taken for pain relief or fever control. It's much safer than aspirin, offering a wider range of "safe" dosages. It is safe during . Some brand names are Tylenol, Panadol, Datril, Anacin 3, Tempra, and Liquiprin. Acetaminophen can be repeated every four hours. The following are maximum recommended dosages: WEIGHT Dose Drops Elixir Chewable( 80mg) (LBS.) drprs=droppers tsp=teaspoon >89 pounds or adults 650 mg to 900 mg Acetaminophen can be repeated every four hours. Maximum dose not to exceed 4000 mg a day. These maximum recommended dosages are slightly higher than the dosages written on the product container, but these dosages are very safe and below the toxic dosage for acetaminophen. FOLLOW-UP CARE: If you have been referred to a physician for follow-up care, call the physician s office for an appointment as you were instructed or within the next two days. If you experience worsening or a significant change in your symptoms, notify the physician immediately or return to the Emergency Department at any time for re-evaluation. This time, we cannot find any evidence of an abnormality causing her pain. You do not appear to have ovarian cysts. Your is normal with a living intrauterine at 11 weeks and 2 days and a normal heartbeat. We do not think you have appendicitis from the symptoms are describing that are ongoing for a couple of weeks. Return if you have new or worsening symptoms, especially if fever. Referrals: FELECIA VASQUEZ MD [Primary Care Provider] - Follow up as needed
[2017-08-05 21:02] VITALS: BP 116/77
== END 2017-08-05 21:02 | disposition home or self-care (01) ==
LOC: ER 16:50
DX: O26.91 Pregnancy related conditions, unspecified, first trimester (principal); R10.31 Right lower quadrant pain; R10.9 Unspecified abdominal pain; Z3A.11 11 weeks gestation of pregnancy
CPT/HCPCS: 36415; 76801; 80053; 81001; 83690; 84702; 85025; 86900; 86901; 99284

== ENCOUNTER 2017-09-26 12:07 | Emergency (ER) | payer MEDICAID ==
[2017-09-26] MEDS ORDERED: NORMAL SALINE 1000 ML 1,000 ML IV PRN (12:33)
--- NOTE | 2017-09-26 12:33 | ER Document Report ---
ED General - General Chief Complaint: Nausea/Vomiting Stated Complaint: VOMITING Time Seen by Provider: 09/26/17 12:27 Mode of Arrival: Ambulatory Information source: Patient Notes: 22 yr old female presents with complaints of dehydration. Pt notes she is on multiple meds, vomited 2x today. pt denies any fevers or chills, admits to mild spotting intermittently. denies any large clots or severe abd pain. TRAVEL OUTSIDE OF THE [place] IN LAST 30 DAYS: No - HPI Onset: Other Onset/Duration: Intermittent Quality of pain: No pain Severity: Mild Pain Level: Denies Associated symptoms: Nausea, Vomiting Exacerbated by: Denies Relieved by: Denies Similar symptoms previously: Yes Recently seen / treated by doctor: Yes - Related Data Allergies/Adverse Reactions: peanut Allergy (Verified 09/13/17 14:23) Penicillins Allergy (Verified 09/13/17 14:23) Past Medical History - Social History Smoking Status: Never Smoker Cigarette use (# per day): No Chew tobacco use (# tins/day): No Smoking Education Provided: No Family History: None, Reviewed & Not Pertinent - Past Medical History Cardiac Medical History: Reports: Hx Heart Murmur Renal/ Medical History: Denies: Hx Peritoneal Dialysis Psychiatric Medical History: Reports: Hx Anxiety Infectious Medical History: Denies: Hx MRSA - Immunizations Immunizations up to date: Yes Hx Diphtheria, Pertussis, Tetanus Vaccination: Yes Review of Systems - Review of Systems Notes: REVIEW OF SYSTEMS: CONSTITUTIONAL : Denies fever, chills, or sweats. Denies recent illness. EENT: Denies eye, ear, throat, or mouth pain or symptoms. Denies nasal or sinus congestion or discharge. Denies throat, tongue, or mouth swelling or difficulty swallowing. CARDIOVASCULAR: Denies chest pain. Denies palpitations or racing or irregular heart beat. Denies ankle edema. RESPIRATORY: Denies cough, cold, or chest congestion. Denies shortness of breath, difficulty breathing, or wheezing. GASTROINTESTINAL: Admits nausea vomiting GENITOURINARY: Denies difficulty urinating, painful urination, burning, frequency, blood in urine, or discharge. FEMALE GENITOURINARY: Denies vaginal bleeding, heavy or abnormal periods, irregular periods. Denies vaginal discharge or odor. MUSCULOSKELETAL: Denies back or neck pain or stiffness. Denies joint pain or swelling. SKIN: Denies rash, lesions or sores. HEMATOLOGIC : Denies easy bruising or bleeding. LYMPHATIC: Denies swollen, enlarged glands. NEUROLOGICAL: Denies confusion or altered mental status. Denies passing out or loss of consciousness. Denies dizziness or lightheadedness. Denies headache. Denies weakness or paralysis or loss of use of either side. Denies problems with gait or speech. Denies sensory loss, numbness, or tingling. Denies seizures. PSYCHIATRIC: Denies anxiety or stress. Denies depression, suicidal ideation, or homicidal ideation. ALL OTHER SYSTEMS REVIEWED AND NEGATIVE. PHYSICAL EXAMINATION: GENERAL: Well-appearing, well-nourished and in no acute distress. HEAD: Atraumatic, normocephalic. EYES: Pupils equal round and reactive to light, extraocular movements intact, conjunctiva are normal. ENT: Nares patent, oropharynx clear without exudates. Moist mucous membranes. NECK: Normal range of motion, supple without lymphadenopathy LUNGS: Breath sounds clear to auscultation bilaterally and equal. No wheezes rales or rhonchi. HEART: Regular rate and rhythm without murmurs ABDOMEN: Soft, nontender, nondistended abdomen. No guarding, no rebound. No masses appreciated. Female : deferred Musculoskeletal: Normal range of motion, no pitting or edema. No cyanosis. NEUROLOGICAL: Cranial nerves grossly intact. Normal speech, normal gait. Normal sensory, motor exams PSYCH: Normal mood, normal affect. SKIN: Warm, Dry, normal turgor, no rashes or lesions noted. Dictation was performed using [employer] voice recognition software Physical Exam - Vital signs Vitals: Temp Pulse Resp BP Pulse Ox 98.1 F 92 18 101/65 95 09/26/17 12:08 09/26/17 12:08 09/26/17 12:08 09/26/17 12:08 09/26/17 12:08 Course - Re-evaluation Re-evalutation: 09/26/17 12:37 Patient requests IV fluid, she does not want any medications or any other intervention, 09/26/17 13:08 I was notified that patient does not want iv fluids, does not want meds. I am unsure of patients presenting concern since she does not want anything done. 09/26/17 13:34 It appears patient's real concern is dental pain which she did not explain to me. Patient otherwise looks well is in no distress does not want any further intervention except for a nerve block which I will perform gladly for After performing a Medical Screening Examination, I estimate there is LOW risk for a DEEP SPACE INFECTION (e.g., ROVERTO'S ANGINA OR RETROPHARYNGEAL ABSCESS), MENINGITIS, INTRACRANIAL HEMORRHAGE, or AIRWAY COMPROMISE, thus I consider the discharge disposition reasonable. Also, there is no evidence or peritonitis, sepsis, or toxicity. I have reevaluated this patient multiple times and no significant life threatening changes are noted. The patient and I have discussed the diagnosis and risks, and we agree with discharging home with close follow-up with the understanding that symptoms and presentations can change. We also discussed returning to the Emergency Department immediately if new or worsening symptoms occur. We have discussed the symptoms which are most concerning (e.g., changing or worsening pain, trouble swallowing or breathing, neck stiffness or fever) that necessitate immediate return. - Vital Signs Vital signs: Temp Pulse Resp BP Pulse Ox 98.1 F 92 18 101/65 95 09/26/17 12:08 09/26/17 12:08 09/26/17 12:08 09/26/17 12:08 09/26/17 12:08 - Laboratory Result Diagrams: 09/26/17 12:45 09/26/17 12:45 Laboratory results interpreted by me: 09/26/17 09/26/17 12:45 12:45 WBC 12.6 H Hgb 11.8 L Hct 35.5 L MCV 79 L MCH 26.2 L RDW 16.4 H Absolute Neutrophils 9.6 H Ur Leukocyte Esterase TRACE H Procedures - Additional Procedures left infraorbital nerve block Time performed: 13:40 - left infraorbital nerve block performed using 10 cc of sensorcaine with complete relief no complication Discharge - Discharge Clinical Impression: Pain, dental, Nausea Condition: Stable Disposition: HOME, SELF-CARE Instructions: Toothache ([facility]) Additional Instructions: Follow up with your physician tomorrow for further care or return to the ED IMMEDIATELY if symptoms worsen or new concerns occur. If you cannot afford to follow up with your primary care physician a list of low cost clinics have been provided at the end of your discharge papers as well.
[2017-09-26 13:08] LABS: ABSOLUTE EOSINOPHILS # (AUTO) 0.1 10^3/uL (0.0-0.6); ABSOLUTE LYMPHOCYTES (AUTO) 2.3 10^3/uL (0.5-4.7); ABSOLUTE MONOCYTES (AUTO) 0.6 10^3/uL (0.1-1.4); ABSOLUTE NEUT (AUTO) 9.6 10^3/uL (1.7-8.2); BASOPHILS % (AUTO) 0.3 % (0-2); EOSINOPHILS % (AUTO) 0.7 % (0-6); HEMATOCRIT 35.5 % (36.0-47.0); HEMOGLOBIN 11.8 g/dL (12.0-15.5); HGB HCT DIFFERENCE -0.1; LYMPHOCYTES % (AUTO) 17.9 % (13-45); MEAN CORPUSCULAR HEMOGLOBIN 26.2 pg (27.0-33.4); MEAN CORPUSCULAR HGB CONC 33.3 g/dL (32.0-36.0); MEAN CORPUSCULAR VOLUME 79 fl (80-97); MONOCYTES % (AUTO) 4.6 % (3-13); RED BLOOD COUNT 4.51 10^6/uL (3.72-5.28); RED CELL DISTRIBUTION WIDTH 16.4 % (11.5-14.0); SEGMENTED NEUTROPHILS % (AUTO) 76.5 % (42-78); WHITE BLOOD COUNT 12.6 10^3/uL (4.0-10.5)
[2017-09-26 13:12] LABS: APPEARANCE,URINE SLIGHTLY-CLOUDY; BILIRUBIN,URINE NEGATIVE (NEGATIVE); GLUCOSE, URINE NEGATIVE (NEGATIVE); KETONES,URINE NEGATIVE (NEGATIVE); LEUKOCYTE ESTERASE,URINE TRACE (NEGATIVE); NITRITE,URINE NEGATIVE (NEGATIVE); PROTEIN,URINE NEGATIVE (NEGATIVE); URINE SPECIFIC GRAVITY 1.018; UROBILINOGEN,URINE NEGATIVE mg/dL (<2.0)
[2017-09-26] MEDS ORDERED: BUPIVACAINE HCL 0.5 % INJ/PF 30 ML SDV INJ ONE (13:33)
[2017-09-26 13:35] LABS: ALANINE AMINOTRANSFERASE 25 U/L (9-52); ALBUMIN 3.6 g/dL (3.5-5.0); ALKALINE PHOSPHATASE 56 U/L (38-126); ANION GAP 12 (5-19); ASPARTATE AMINO TRANSFERASE 15 U/L (14-36); BILIRUBIN,DIRECT 0.5 mg/dL (0.0-0.4); BILIRUBIN,TOTAL 0.6 mg/dL (0.2-1.3); BLOOD UREA NITROGEN 6 mg/dL (7-20); CARBON DIOXIDE 21 mmol/L (22-30); CHLORIDE 106 mmol/L (98-107); CREATININE RESULT 0.49 mg/dL (0.52-1.25); GLUCOSE 94 mg/dL (75-110); POTASSIUM 3.8 mmol/L (3.6-5.0); SODIUM 138.9 mmol/L (137-145); TOTAL PROTEIN 6.6 g/dL (6.3-8.2)
[2017-09-26 14:13] VITALS: BP 114/62
== END 2017-09-26 14:08 | disposition home or self-care (01) ==
LOC: ER 12:07
PROC: 3E0T3BZ Introduction of Anesthetic Agent into Peripheral Nerves and Plexi, Percutaneous Approach (ICD-10-PCS; principal; 2017-09-26)
DX: K08.89 Other specified disorders of teeth and supporting structures (principal); R11.2 Nausea with vomiting, unspecified; E86.0 Dehydration; R11.10 Vomiting, unspecified
CPT/HCPCS: 36415; 80053; 81001; 85025; 99284

== ENCOUNTER 2017-10-10 21:43 | Outpatient (CLI) | payer MEDICAID ==
--- NOTE | 2017-10-10 21:58 | Non Stress Test Report ---
Non Stress Test Datetime Report Generated by CPN: 10/10/2017 21:57 DEMOGRAPHIC Test Number: 1 EGA NST: 36.3 EGA NST: 36.0 EGA NST: 34.0 INDICATION Indication for Study: Ordered by Provider Indication for Study: Ordered by Provider; Other Indication for Study: Ordered by Provider Indication for Study (NST) Other: Labor Check MONITORING Monitor Explained: Monitor Explained; Test Explained; Patient Verbalized Understanding Monitor Explained: Monitor Explained; Test Explained; Patient Verbalized Understanding Monitor Explained: Monitor Explained; Test Explained; Patient Verbalized Understanding; Other Time on Monitor: 03/25/2016 14:29 Time on Monitor: 03/22/2016 17:15 Time on Monitor: 03/08/2016 19:33 Time off Monitor: 03/25/2016 15:04 Time off Monitor: 03/22/2016 17:45 Time off Monitor: 03/08/2016 21:25 NST Duration: 35 NST Duration: 30 NST Duration: 112 NST INTERVENTIONS NST Interventions: PO Hydration NST Interventions: PO Hydration NST Interventions: PO Hydration Physician Notified NST: Dr. Burnett Physician Notified NST: H Kendell CNM Physician Notified NST: Dr. Reed BABY A: [id number] BABY A Movement : Present Movement : Present Movement : Present Contraction Frequency : occasional Contraction Frequency : 0 uterine irritability noted Contraction Frequency : irregular FHR Baseline : 135 FHR Baseline : 135 FHR Baseline : 135 Accelerations : 15X15 Accelerations : 15X15 Accelerations : 15X15 Decelerations : None Decelerations : None Decelerations : None Variability : Moderate 6-25bpm Variability : Moderate 6-25bpm Variability : Moderate 6-25bpm NST Review: Meets Criteria for Reactive NST NST Review: Meets Criteria for Reactive NST NST Review: Meets Criteria for Reactive NST NST Review and Verified By : Rukhsana Klein RN NST Review and Verified By : Venessa Rojo RN NST Review and Verified By : Sal Mark RN NST Results: Reactive NST Results: Reactive NST Results: Reactive NST REPORT Report Trigger: Send Report Report Trigger: Send Report
[2017-10-10 22:27] LABS: APPEARANCE,URINE SLIGHTLY-CLOUDY; BILIRUBIN,URINE NEGATIVE (NEGATIVE); GLUCOSE, URINE NEGATIVE (NEGATIVE); KETONES,URINE TRACE mg/dL (NEGATIVE); LEUKOCYTE ESTERASE,URINE NEGATIVE (NEGATIVE); NITRITE,URINE NEGATIVE (NEGATIVE); PROTEIN,URINE 30 mg/dL (NEGATIVE); URINE SPECIFIC GRAVITY 1.032; UROBILINOGEN,URINE NEGATIVE mg/dL (<2.0)
[2017-10-10 22:40] LABS: URINE BARBITURATES SCREEN NEGATIVE; URINE METHADONE SCREEN NEGATIVE; URINE OPIATES LOW NEGATIVE; URINE PHENCYCLIDINE SCREEN NEGATIVE
[2017-10-10] MEDS ORDERED: CEFTRIAXONE 1 GM/D5W RTU 1 GM/50 ML RTUPB IV PRN (22:48)
[2017-10-10] MEDS ORDERED: RINGERS SOLUTION,LACTATED 1,000 ML IV PRN (22:49)
[2017-10-10] MEDS ORDERED: RINGERS SOLUTION,LACTATED 300 ML IV ONE (22:49)
[2017-10-10] MEDS ORDERED: CEFTRIAXONE 1 GM/D5W RTU 0 GM/0 ML RTUPB IV ONE (22:56)
[2017-10-10] MEDS ORDERED: NITROFURANTOIN MONOHYD/M-CRYST 100 MG CAPSULE PO ONE (23:15)
[2017-10-10 23:19] LABS: ABSOLUTE BASOPHILS # (AUTO) 0.1 10^3/uL (0.0-0.2); ABSOLUTE EOSINOPHILS # (AUTO) 0.1 10^3/uL (0.0-0.6); ABSOLUTE LYMPHOCYTES (AUTO) 2.3 10^3/uL (0.5-4.7); ABSOLUTE MONOCYTES (AUTO) 0.8 10^3/uL (0.1-1.4); ABSOLUTE NEUT (AUTO) 10.2 10^3/uL (1.7-8.2); BASOPHILS % (AUTO) 0.6 % (0-2); EOSINOPHILS % (AUTO) 0.6 % (0-6); HEMATOCRIT 32.6 % (36.0-47.0); HEMOGLOBIN 10.8 g/dL (12.0-15.5); HGB HCT DIFFERENCE -0.2; LYMPHOCYTES % (AUTO) 17.4 % (13-45); MEAN CORPUSCULAR HEMOGLOBIN 26.1 pg (27.0-33.4); MEAN CORPUSCULAR HGB CONC 33.1 g/dL (32.0-36.0); MEAN CORPUSCULAR VOLUME 79 fl (80-97); RED BLOOD COUNT 4.15 10^6/uL (3.72-5.28); RED CELL DISTRIBUTION WIDTH 17.1 % (11.5-14.0); SEGMENTED NEUTROPHILS % (AUTO) 75.4 % (42-78); WHITE BLOOD COUNT 13.5 10^3/uL (4.0-10.5)
[2017-10-10] MEDS ORDERED: NITROFURANTOIN MONOHYD/M-CRYST 100 MG CAPSULE ONE (23:20)
--- NOTE | 2017-10-11 00:44 | RADIOLOGY REPORT (SQ) ---
EXAM DESCRIPTION: U/S OB LIMITED CLINICAL HISTORY: 22 years, Female, cervical length, placenta location/ status COMPARISON: September 13, 2017. TECHNIQUE: Transvaginal. LIMITATIONS: None. FINDINGS: Cervical length is 5.3 cm. Cervix appears closed. Low-lying anterior placenta within 0.3 cm of the internal cervical os. Color Doppler sonogram demonstrates subplacental vascularity suggests subplacental vessels. No gross abruption and no significant clot discerned. Vertex. Cardiac activity: 149 bpm. IMPRESSION: Low-lying placenta. 2011 [employer]- All Rights Reserved
== END 2017-10-11 01:20 | disposition home or self-care (01) ==
LOC: LC 21:43
PROVIDERS: ATTEND Obstetrics & Gynecology
PROC: 4A1HXCZ Monitoring of Products of Conception, Cardiac Rate, External Approach (ICD-10-PCS; principal; 2017-10-10)
DX: O44.42 Low lying placenta NOS or without hemorrhage, second trimester (principal); O23.43 Unspecified infection of urinary tract in pregnancy, third trimester; O47.02 False labor before 37 completed weeks of gestation, second trimester; Z3A.21 21 weeks gestation of pregnancy
CPT/HCPCS: 59899; 36415; 87086; 85025; 81001; 80307; 76815; J3490; J0696; J8499

== ENCOUNTER 2017-10-17 10:41 | Emergency (ER) | payer MEDICAID ==
[2017-10-17 11:47] LABS: ABSOLUTE EOSINOPHILS # (AUTO) 0.1 10^3/uL (0.0-0.6); ABSOLUTE LYMPHOCYTES (AUTO) 1.7 10^3/uL (0.5-4.7); ABSOLUTE MONOCYTES (AUTO) 0.6 10^3/uL (0.1-1.4); ABSOLUTE NEUT (AUTO) 10.4 10^3/uL (1.7-8.2); BASOPHILS % (AUTO) 0.3 % (0-2); EOSINOPHILS % (AUTO) 0.5 % (0-6); HEMATOCRIT 32.7 % (36.0-47.0); HEMOGLOBIN 10.8 g/dL (12.0-15.5); HGB HCT DIFFERENCE -0.3; LYMPHOCYTES % (AUTO) 13.5 % (13-45); MEAN CORPUSCULAR HEMOGLOBIN 26.4 pg (27.0-33.4); MEAN CORPUSCULAR HGB CONC 33.1 g/dL (32.0-36.0); MEAN CORPUSCULAR VOLUME 80 fl (80-97); MONOCYTES % (AUTO) 4.5 % (3-13); RED BLOOD COUNT 4.09 10^6/uL (3.72-5.28); RED CELL DISTRIBUTION WIDTH 17.5 % (11.5-14.0); SEGMENTED NEUTROPHILS % (AUTO) 81.2 % (42-78); WHITE BLOOD COUNT 12.9 10^3/uL (4.0-10.5)
[2017-10-17 11:49] LABS: APPEARANCE,URINE SLIGHTLY-CLOUDY; BILIRUBIN,URINE NEGATIVE (NEGATIVE); GLUCOSE, URINE NEGATIVE (NEGATIVE); KETONES,URINE NEGATIVE (NEGATIVE); LEUKOCYTE ESTERASE,URINE NEGATIVE (NEGATIVE); NITRITE,URINE NEGATIVE (NEGATIVE); PROTEIN,URINE 30 mg/dL (NEGATIVE); URINE SPECIFIC GRAVITY 1.023
--- NOTE | 2017-10-17 11:52 | ER Document Report ---
ED Seizure - General Chief Complaint: Probable Seizure Stated Complaint: POSSIBLE SEIZURE Time Seen by Provider: 10/17/17 11:46 Notes: Patient says that she has had 2 seizures this morning, about 9:30 AM, while she was cleaning windows. She says that there was about 5 minutes in between each of the seizures. She has a history of seizure disorder and does have an aura of seeing black spots and then a headache preceding her seizures. When she felt the seizure coming on, she laid on the floor so she did not sustain any injuries. Patient denies biting her tongue. Denies incontinence of bladder or bowel. Patient has a history of seizures for which he is currently not on any medications because she is . She said that she started having seizures when she was about 18 years old and has had maybe 20 seizures in her lifetime. They seem to be increasing of late. Her most recent seizure before today was last week. She came to this emergency department for evaluation at that time. She is also 22 weeks and had some vaginal bleeding when she was seen here last week, but says that her ultrasound did not show any abnormality. Patient says she is very nauseated, but not vomiting. Has not had any fever. Was told when she was here a week ago that she had a UTI and was put on an antibiotic and still has a couple of days dose of that medication to take. Patient also has a history of depression, anxiety, bipolar disorder, and PTSD. - Related Data Allergies/Adverse Reactions: peanut Allergy (Verified 09/13/17 14:23) Penicillins Allergy (Verified 09/13/17 14:23) Home Medications: Current Home Medications Buspirone HCl [Buspar 10 mg Tablet] 10 mg PO BID 10/17/17 [History] Lurasidone HCl [Latuda] 20 mg PO DAILY 10/17/17 [History] Pnv 76/Iron,Gluc/Folic/Dss/Dha [Citranatal Dha Pack] 1 each PO DAILY 10/17/17 [ History] Past Medical History - Social History Smoking Status: Never Smoker Chew tobacco use (# tins/day): No Frequency of alcohol use: None Drug Abuse: None Family History: None, Reviewed & Not Pertinent Patient has suicidal ideation: No Patient has homicidal ideation: No - Past Medical History Cardiac Medical History: Reports: Hx Heart Murmur Neurological Medical History: Reports: Hx Seizures - induced Psychiatric Medical History: Reports: Hx Anxiety, Hx Bipolar Disorder, Hx Depression, Hx Post Traumatic Stress Disorder Infectious Medical History: Denies: Hx MRSA - Immunizations Immunizations up to date: Yes Hx Diphtheria, Pertussis, Tetanus Vaccination: Yes Review of Systems - Review of Systems Notes: REVIEW OF SYSTEMS: CONSTITUTIONAL : Denies fever. EENT: Denies eye, ear, nose or mouth or throat pain or other symptoms. CARDIOVASCULAR: Denies chest pain. RESPIRATORY: Denies cough, chest congestion, or shortness of breath. GASTROINTESTINAL: Denies abdominal pain but is very nauseated, although no vomiting, or diarrhea. GENITOURINARY: Denies difficulty or painful urinating, urinary frequency, blood in urine. MUSCULOSKELETAL: Denies back or neck pain. Denies joint pain or swelling. SKIN: Denies rash or skin lesions. NEUROLOGICAL: See HPI. Denies LOC or altered mental status. Denies headache. Denies sensory loss or motor deficits. ALL OTHER SYSTEMS REVIEWED AND NEGATIVE. Physical Exam - Vital signs Vitals: Resp 18 10/17/17 10:41 Interpretation: Normal - Per EMS - Notes Notes: PHYSICAL EXAMINATION: GENERAL: Well-appearing, in no acute distress. HEAD: Atraumatic, normocephalic. EYES: Pupils equal round and reactive to light, extraocular movements intact. ENT: oropharynx clear without exudates. Moist mucous membranes. No injuries to the tongue. NECK: Normal range of motion, supple. LUNGS: Breath sounds clear and equal bilaterally. HEART: Regular rate and rhythm without murmurs. ABDOMEN: Soft, nontender. No guarding or rebound. BACK: No tenderness throughout entire back. EXTREMITIES: Normal range of motion without pain. NEUROLOGICAL: Normal speech, normal gait. Normal sensory, motor, and reflex exams. Awake, alert, and oriented x3. Cranial nerves normal. PSYCH: Normal mood, normal affect. SKIN: Warm, dry, no rashes. Course - Re-evaluation Re-evalutation: 10/17/17 13:26 Labs are all essentially normal except for protein in the urine of 30. WBC is slightly elevated. Discussed with Dr. Baca, who is on-call for [employer], and she says that they will try to get this patient set up to see a neurologist. We feel the patient can be discharged home at this time. - Vital Signs Vital signs: Temp Pulse Resp BP Pulse Ox 97.6 F 90 18 101/61 97 10/17/17 11:46 10/17/17 11:46 10/17/17 11:46 10/17/17 11:46 10/17/17 11:46 - Laboratory Result Diagrams: 10/17/17 11:30 10/17/17 11:30 Laboratory results interpreted by me: 10/17/17 10/17/17 10/17/17 11:25 11:30 11:30 WBC 12.9 H Hgb 10.8 L Hct 32.7 L MCH 26.4 L RDW 17.5 H Seg Neutrophils % 81.2 H Absolute Neutrophils 10.4 H Chloride 108 H BUN 5 L Creatinine 0.44 L Albumin 3.4 L Serum HCG, Qual Urine Protein 30 H Urine Urobilinogen 2.0 H 10/17/17 11:30 WBC Hgb Hct MCH RDW Seg Neutrophils % Absolute Neutrophils Chloride BUN Creatinine Albumin Serum HCG, Qual POSITIVE H Urine Protein Urine Urobilinogen Discharge - Discharge Clinical Impression: Seizures, Additional Instructions: Seizure You have had a seizure. Seizure disorders (epilepsy) of one sort or another affect about one out of 50 people. The seizure occurs because of abnormal electrical activity in the brain. Seizures may be due to drugs and alcohol, strokes, brain injury, or infection. In the most common form of epilepsy, no cause can be found. You will require further evaluation to determine the cause of your seizure, and to determine whether anti-seizure medication is required. This follow-up testing is important, so please call us if you encounter problems with scheduling of tests or appointments. YOU SHOULD NOT DRIVE until released to do so by your physician. The law requires that seizures be reported to the regional refrigerated c[employer] truck driver's license bureau--a seizure while driving could be catastrophic. Call the doctor if seizures recur, or if you develop new symptoms such as fever, severe headache, stiff neck, confusion or increasing sleepiness, weakness or numbness, or visual problems. You are . care is best started as early in as possible. If you're unsure about continuing this , you should discuss this with your physician or with quality assurance coordinator at [facility]. You should take only medications approved by your physician. Acetaminophen can safely be taken for minor pains. As a rule, medication for chronic conditions such as asthma or seizures can safely be continued. You should discuss with the physician every medicine you take. Any regular exercise program can be continued. Talk to your physician, however, before engaging in competitive or demanding sports. Alcohol, smoking, and "street drugs" are dangerous to your baby. Cocaine is especially dangerous. Don't use any illicit drugs! FOLLOW-UP CARE: If you have been referred to a physician for follow-up care, call the physician s office for an appointment as you were instructed or within the next two days. If you experience worsening or a significant change in your symptoms, notify the physician immediately or return to the Emergency Department at any time for re-evaluation. Referrals: GARRY BACA MD [Primary Care Provider] - Follow up as needed
[2017-10-17 12:08] LABS: ALANINE AMINOTRANSFERASE 26 U/L (9-52); ALBUMIN 3.4 g/dL (3.5-5.0); ALKALINE PHOSPHATASE 61 U/L (38-126); ANION GAP 9 (5-19); ASPARTATE AMINO TRANSFERASE 15 U/L (14-36); BILIRUBIN,DIRECT 0.3 mg/dL (0.0-0.4); BILIRUBIN,TOTAL 0.4 mg/dL (0.2-1.3); BLOOD UREA NITROGEN 5 mg/dL (7-20); CALCIUM 8.8 mg/dL (8.4-10.2); CARBON DIOXIDE 22 mmol/L (22-30); CHLORIDE 108 mmol/L (98-107); CREATININE RESULT 0.44 mg/dL (0.52-1.25); GLUCOSE 79 mg/dL (75-110); MAGNESIUM 1.9 mg/dL (1.6-2.3); SODIUM 138.5 mmol/L (137-145); TOTAL PROTEIN 6.4 g/dL (6.3-8.2)
[2017-10-17 12:09] LABS: ALCOHOL < 10 mg/dL (NONE DETECTED)
[2017-10-17 12:46] LABS: URINE BARBITURATES SCREEN NEGATIVE; URINE METHADONE SCREEN NEGATIVE; URINE OPIATES LOW NEGATIVE; URINE PHENCYCLIDINE SCREEN NEGATIVE
[2017-10-17 14:01] VITALS: BP 104/66
== END 2017-10-17 14:02 | disposition home or self-care (01) ==
LOC: ER 10:41
DX: O99.352 Diseases of the nervous system complicating pregnancy, second trimester (principal); G40.909 Epilepsy, unspecified, not intractable, without status epilepticus; O23.42 Unspecified infection of urinary tract in pregnancy, second trimester; O26.892 Other specified pregnancy related conditions, second trimester; R11.0 Nausea; Z3A.22 22 weeks gestation of pregnancy; Z91.010 Allergy to peanuts; Z88.0 Allergy status to penicillin
CPT/HCPCS: 36415; 80053; 80307; 81001; 82962; 83735; 84703; 85025; 99284

== ENCOUNTER 2017-12-13 09:58 | Outpatient (CLI) | payer MEDICAID ==
[2017-12-13] MEDS ORDERED: RINGERS SOLUTION,LACTATED 1,000 ML IV ONE (10:30)
[2017-12-13 10:40] LABS: APPEARANCE,URINE SLIGHTLY-CLOUDY; BILIRUBIN,URINE NEGATIVE (NEGATIVE); COLOR,URINE YELLOW; GLUCOSE, URINE NEGATIVE (NEGATIVE); KETONES,URINE NEGATIVE (NEGATIVE); LEUKOCYTE ESTERASE,URINE NEGATIVE (NEGATIVE); NITRITE,URINE NEGATIVE (NEGATIVE); PROTEIN,URINE 30 mg/dL (NEGATIVE); URINE SPECIFIC GRAVITY 1.038; UROBILINOGEN,URINE NEGATIVE mg/dL (<2.0)
[2017-12-13 10:44] LABS: AMNISURE (ROM) NEGATIVE (NEGATIVE)
[2017-12-13 10:54] LABS: URINE AMPHETAMINES SCREEN NEGATIVE; URINE BARBITURATES SCREEN NEGATIVE; URINE BENZODIAZEPINES SCREEN NEGATIVE; URINE COCAINE SCREEN NEGATIVE; URINE MARIJUANA (THC) SCREEN NEGATIVE; URINE METHADONE SCREEN NEGATIVE; URINE PHENCYCLIDINE SCREEN NEGATIVE
--- NOTE | 2017-12-13 13:05 | RADIOLOGY REPORT (SQ) ---
EXAM DESCRIPTION: U/S OB LIMITED COMPLETED DATE/TIME: 12/13/2017 12:54 pm REASON FOR STUDY: abdominal pain r/o contractions COMPARISON: October 2017 TECHNIQUE: Limited transvaginal and transabdominal grayscale ultrasound for evaluation of specific r equested obstetrical parameters. LIMITATIONS: None. FINDINGS: CERVICAL LENGTH: 4.4 cm Closed. NGIEL: 16.4 cm. FHR: 132 beats per minute. PRESENTATION: Breech OTHER: Anterior placenta is identified IMPRESSION: LIMITED OBSTETRICAL ULTRASOUND WITH MEASURED PARAMETERS DELINEATED ABOVE. Trimester of : Third trimester - 28 weeks to delivery. TECHNICAL DOCUMENTATION: JOB ID: [id number] [employer]- All Rights Reserved
[2017-12-13 14:00] LABS: ABSOLUTE LYMPHOCYTES (AUTO) 1.8 10^3/uL (0.5-4.7); ABSOLUTE MONOCYTES (AUTO) 0.4 10^3/uL (0.1-1.4); ABSOLUTE NEUT (AUTO) 11.9 10^3/uL (1.7-8.2); BASOPHILS % (AUTO) 0.1 % (0-2); EOSINOPHILS % (AUTO) 0.3 % (0-6); HEMATOCRIT 29.9 % (36.0-47.0); HEMOGLOBIN 9.7 g/dL (12.0-15.5); MEAN CORPUSCULAR HEMOGLOBIN 23.9 pg (27.0-33.4); MEAN CORPUSCULAR HGB CONC 32.4 g/dL (32.0-36.0); MEAN CORPUSCULAR VOLUME 74 fl (80-97); MONOCYTES % (AUTO) 2.7 % (3-13); PLATELET COUNT 209 10^3/uL (150-450); RED BLOOD COUNT 4.05 10^6/uL (3.72-5.28); RED CELL DISTRIBUTION WIDTH 16.4 % (11.5-14.0); SEGMENTED NEUTROPHILS % (AUTO) 83.9 % (42-78); TOTAL CELLS COUNTED % (AUTO) 100 %; WHITE BLOOD COUNT 14.2 10^3/uL (4.0-10.5)
--- NOTE | 2017-12-13 15:55 | ER Document Report ---
Doctor's Note Notes: 12/13/17 15:54 I was called into trauma room #2 for labor check. Patient was approximately 30- 33 weeks and report by EMS was that she had possible ruptured membranes quick evaluation did not show a any a sterile glove examination showed cervix possibly at 2-3 cm however patient would be stable to go to OB triage
== END 2017-12-13 14:44 | disposition home or self-care (01) ==
LOC: LC 09:58
PROVIDERS: ATTEND Obstetrics & Gynecology
PROC: 4A1HXCZ Monitoring of Products of Conception, Cardiac Rate, External Approach (ICD-10-PCS; principal; 2017-12-13)
DX: O47.03 False labor before 37 completed weeks of gestation, third trimester (principal); Z3A.30 30 weeks gestation of pregnancy
CPT/HCPCS: 36415; 76815; 80307; 81001; 84112; 85025

== ENCOUNTER 2017-12-17 20:31 | Emergency (ER) | payer MEDICAID ==
[2017-12-17 20:46] VITALS: BP 121/73
[2017-12-17] MEDS ORDERED: HYDROCODONE/ACETAMINOPHEN 5-325 MG (6 TAB/ER DISP) PO PRN (22:45)
[2017-12-17] MEDS ORDERED: AMOXICILLIN TRIHYDRATE 500 MG CAPSULE PO ONE (22:45)
[2017-12-17] MEDS ORDERED: HYDROCODONE/ACETAMINOPHEN 5-325 MG TABLET PO ONE (22:45)
--- NOTE | 2017-12-17 22:48 | ER Document Report ---
HPI - HPI Patient complains to provider of: Dental pain Pain Level: 5 Context: Patient is a 22-year-old female comes emergency department for chief complaint of pain in her left upper mouth, she states that she saw a dentist today and was told that she needs an extraction, she states they prescribed her Tylenol 3 and she took one but she is still in a lot of pain. She completed antibiotics over a week ago, took penicillin. She states tonight the pain was unbearable and she could not sleep. She denies fever chills, swelling of the neck, difficulty swallowing. She is 31 weeks . - REPRODUCTIVE Reproductive: REPORTS: : Past Medical History - General Information source: Patient - Social History Smoking Status: Never Smoker Frequency of alcohol use: None Drug Abuse: None Lives with: Family Family History: None, Reviewed & Not Pertinent - Past Medical History Cardiac Medical History: Reports: Hx Heart Murmur Neurological Medical History: Reports: Hx Seizures - induced Renal/ Medical History: Denies: Hx Peritoneal Dialysis Psychiatric Medical History: Reports: Hx Anxiety, Hx Bipolar Disorder, Hx Depression, Hx Post Traumatic Stress Disorder Infectious Medical History: Denies: Hx MRSA Surgical Hx: Negative - Immunizations Immunizations up to date: Yes Hx Diphtheria, Pertussis, Tetanus Vaccination: Yes Vertical Provider Document - CONSTITUTIONAL General Appearance: WD/WN, No Apparent Distress - INFECTION CONTROL TRAVEL OUTSIDE OF THE [place] IN LAST 30 DAYS: No - HEENT HEENT: Atraumatic, Normocephalic, PERRLA. negative: Conjuctival Injection, Normal ENT Exam, Pharyngeal Exudate, Pharyngeal Tenderness, Pharyngeal Erythema , Tympanic Membrane Red, Tympanic Membrane Bulging Mouth Diagram: 1 - Dental caries, otherwise normal mouth with no evidence of abscess, normal pharynx, clear airway, normal tongue - NECK Neck: Normal Inspection - RESPIRATORY Respiratory: Breath Sounds Normal, No Respiratory Distress O2 Sat by Pulse Oximetry: 99 - CARDIOVASCULAR Cardiovascular: Regular Rate, Regular Rhythm - GI/ABDOMEN Gastrointestinal: Abdomen Soft, Abdomen Non-Tender - BACK Back: Normal Inspection - MUSCULOSKELETAL/EXTREMETIES Musculoskeletal/Extremeties: MAEW, FROM, Non-Tender Course - Re-evaluation Re-evalutation: Patient with dental caries but no evidence of abscess, Bijan's angina, or other abnormality. Patient has already been referred to another dentist for extraction. She has not been on antibiotics for over a week and has increasing pain. Patient will be started on amoxicillin as result after discussion. She tells me she is not allergic to penicillin. Discussed follow-up and return precautions, patient states understanding and agreement. - Vital Signs Vital signs: Temp Pulse Resp BP Pulse Ox 97.9 F 93 12 121/73 99 12/17/17 20:42 12/17/17 20:42 12/17/17 20:42 12/17/17 20:42 12/17/17 20:42 Discharge - Discharge Clinical Impression: Pain, dental Condition: Stable Disposition: HOME, SELF-CARE Additional Instructions: Take the given medications tonight if needed for pain. Take the amoxicillin as prescribed to completion. Follow-up with your dental referral for extraction. Return if you worsen including developing fever, swelling of the face, or any other concerning symptoms. Prescriptions: Amoxicillin Trihydrate [Amoxil 500 mg Capsule] 500 mg PO BID #20 cap Referrals: FELECIA VASQUEZ MD [Primary Care Provider] - Follow up as needed
== END 2017-12-17 23:10 | disposition home or self-care (01) ==
LOC: ER 20:31
DX: K08.89 Other specified disorders of teeth and supporting structures (principal); Z3A.31 31 weeks gestation of pregnancy
CPT/HCPCS: 99282

== ENCOUNTER 2017-12-21 23:26 | Outpatient (CLI) | payer MEDICAID ==
[2017-12-22 00:04] LABS: APPEARANCE,URINE SLIGHTLY-CLOUDY; BILIRUBIN,URINE NEGATIVE (NEGATIVE); COLOR,URINE YELLOW; GLUCOSE, URINE NEGATIVE (NEGATIVE); KETONES,URINE NEGATIVE (NEGATIVE); LEUKOCYTE ESTERASE,URINE NEGATIVE (NEGATIVE); NITRITE,URINE NEGATIVE (NEGATIVE); PROTEIN,URINE NEGATIVE (NEGATIVE); URINE SPECIFIC GRAVITY 1.034; UROBILINOGEN,URINE NEGATIVE mg/dL (<2.0)
[2017-12-22] MEDS ORDERED: RINGERS SOLUTION,LACTATED 1,000 ML IV PRN (00:17)
[2017-12-22 00:37] LABS: URINE AMPHETAMINES SCREEN NEGATIVE; URINE BARBITURATES SCREEN NEGATIVE; URINE BENZODIAZEPINES SCREEN NEGATIVE; URINE COCAINE SCREEN NEGATIVE; URINE MARIJUANA (THC) SCREEN NEGATIVE; URINE METHADONE SCREEN NEGATIVE; URINE PHENCYCLIDINE SCREEN NEGATIVE
--- NOTE | 2017-12-22 01:00 | RADIOLOGY REPORT (SQ) ---
EXAM DESCRIPTION: U/S OB LIMITED CLINICAL HISTORY: 22 years, Female, cervical length, presentation COMPARISON: None. Technique/LIMITATIONS: Targeted obstetrical sonogram for requested parameters. Transvaginal. FINDINGS: Cervical length: 4.4 cm. Closed appearance. position: Vertex. Cardiac activity: 141 bpm. IMPRESSION: Targeted obstetrical sonogram for requested parameters.
== END 2017-12-22 00:58 | disposition home or self-care (01) ==
LOC: LC 23:26
PROVIDERS: ATTEND Student in an Organized Health Care Education/Training Program
PROC: 4A1HXCZ Monitoring of Products of Conception, Cardiac Rate, External Approach (ICD-10-PCS; principal; 2017-12-21)
DX: O47.03 False labor before 37 completed weeks of gestation, third trimester (principal); Z3A.31 31 weeks gestation of pregnancy
CPT/HCPCS: 76815; 80307; 81001

== ENCOUNTER 2018-01-05 18:16 | Outpatient (CLI) | payer MEDICAID ==
[2018-01-05 18:46] LABS: APPEARANCE,URINE SLIGHTLY-CLOUDY; BILIRUBIN,URINE NEGATIVE (NEGATIVE); COLOR,URINE YELLOW; GLUCOSE, URINE 50 mg/dL (NEGATIVE); KETONES,URINE 20 mg/dL (NEGATIVE); LEUKOCYTE ESTERASE,URINE NEGATIVE (NEGATIVE); NITRITE,URINE NEGATIVE (NEGATIVE); PROTEIN,URINE NEGATIVE (NEGATIVE); URINE SPECIFIC GRAVITY 1.027; UROBILINOGEN,URINE NEGATIVE mg/dL (<2.0)
[2018-01-05 18:55] LABS: URINE AMPHETAMINES SCREEN NEGATIVE; URINE BARBITURATES SCREEN NEGATIVE; URINE BENZODIAZEPINES SCREEN NEGATIVE; URINE COCAINE SCREEN NEGATIVE; URINE MARIJUANA (THC) SCREEN NEGATIVE; URINE METHADONE SCREEN NEGATIVE; URINE PHENCYCLIDINE SCREEN NEGATIVE
== END 2018-01-05 20:29 | disposition home or self-care (01) ==
LOC: LC 18:16
PROVIDERS: ATTEND Obstetrics & Gynecology
PROC: 4A1HXCZ Monitoring of Products of Conception, Cardiac Rate, External Approach (ICD-10-PCS; principal; 2018-01-05)
DX: O47.03 False labor before 37 completed weeks of gestation, third trimester (principal); Z3A.33 33 weeks gestation of pregnancy
CPT/HCPCS: 59025; 80307; 81001

== ENCOUNTER 2018-01-11 15:34 | Outpatient (CLI) | payer MEDICAID ==
--- NOTE | 2018-01-11 15:44 | Non Stress Test Report ---
Non Stress Test Datetime Report Generated by CPN: 01/11/2018 15:44 DEMOGRAPHIC EGA NST: 33.5 INDICATION Indication for Study: Ordered by Provider MONITORING Monitor Explained: Monitor Explained; Test Explained; Patient Verbalized Understanding Time on Monitor: 01/05/2018 18:28 Time off Monitor: 01/05/2018 20:32 NST Duration: 124 NST INTERVENTIONS NST Interventions: PO Hydration; Reposition Patient Physician Notified NST: Dr. Plaza BABY A: [id number] BABY A Movement : Present Contraction Frequency : Irregular FHR Baseline : 135 Accelerations : 15X15 Decelerations : None Variability : Moderate 6-25bpm NST Review: Meets Criteria for Reactive NST NST Review and Verified By : BHAVANA Steven Results: Reactive NST REPORT Report Trigger: Send Report
[2018-01-11 16:24] LABS: APPEARANCE,URINE SLIGHTLY-CLOUDY; BILIRUBIN,URINE NEGATIVE (NEGATIVE); COLOR,URINE YELLOW; GLUCOSE, URINE NEGATIVE (NEGATIVE); KETONES,URINE NEGATIVE (NEGATIVE); LEUKOCYTE ESTERASE,URINE NEGATIVE (NEGATIVE); NITRITE,URINE NEGATIVE (NEGATIVE); PROTEIN,URINE NEGATIVE (NEGATIVE); URINE SPECIFIC GRAVITY 1.009; UROBILINOGEN,URINE NEGATIVE mg/dL (<2.0)
[2018-01-11 16:39] LABS: URINE AMPHETAMINES SCREEN NEGATIVE; URINE BARBITURATES SCREEN NEGATIVE; URINE BENZODIAZEPINES SCREEN NEGATIVE; URINE COCAINE SCREEN NEGATIVE; URINE MARIJUANA (THC) SCREEN NEGATIVE; URINE METHADONE SCREEN NEGATIVE; URINE PHENCYCLIDINE SCREEN NEGATIVE
--- NOTE | 2018-01-11 16:47 | Non Stress Test Report ---
Non Stress Test Datetime Report Generated by CPN: 01/11/2018 16:47 DEMOGRAPHIC EGA NST: 34.4 INDICATION Indication for Study: Ordered by Provider MONITORING Monitor Explained: Monitor Explained; Test Explained; Patient Verbalized Understanding Time on Monitor: 01/11/2018 15:46 Time off Monitor: 01/11/2018 16:39 NST Duration: 53 NST INTERVENTIONS NST Interventions: Reposition Patient Physician Notified NST: H. Kendell, CNM BABY A Movement : Present FHR Baseline : 130 Accelerations : 15X15 Decelerations : None Variability : Moderate 6-25bpm NST Review: Meets Criteria for Reactive NST NST Review and Verified By : Eber Terry RNC NST Results: Reactive NST COMMENTS NST Comments: H. Kendell, CNM reviewed strip, okayed discharge NST REPORT Report Trigger: Send Report
== END 2018-01-11 16:40 | disposition home or self-care (01) ==
LOC: LC 15:34
PROVIDERS: ATTEND Obstetrics & Gynecology
PROC: 4A1HXCZ Monitoring of Products of Conception, Cardiac Rate, External Approach (ICD-10-PCS; principal; 2018-01-11)
DX: Z34.93 Encounter for supervision of normal pregnancy, unspecified, third trimester (principal); Z3A.34 34 weeks gestation of pregnancy
CPT/HCPCS: 59025; 80307; 81005

== ENCOUNTER 2018-01-30 15:30 | Outpatient (CLI) | payer MEDICAID ==
[2018-01-30] MEDS ORDERED: HYDROXYZINE PAMOATE 50 MG CAPSULE PO ONE (16:40)
[2018-01-30] MEDS ORDERED: HYDROXYZINE PAMOATE 50 MG CAPSULE ONE (16:44)
[2018-01-30] MEDS ORDERED: RINGERS SOLUTION,LACTATED 1,000 ML IV ONE (17:06)
[2018-01-30 17:13] LABS: APPEARANCE,URINE SLIGHTLY-CLOUDY; BILIRUBIN,URINE NEGATIVE (NEGATIVE); COLOR,URINE YELLOW; GLUCOSE, URINE NEGATIVE (NEGATIVE); KETONES,URINE NEGATIVE (NEGATIVE); LEUKOCYTE ESTERASE,URINE TRACE (NEGATIVE); NITRITE,URINE NEGATIVE (NEGATIVE); PROTEIN,URINE 30 mg/dL (NEGATIVE); URINE SPECIFIC GRAVITY 1.023; UROBILINOGEN,URINE NEGATIVE mg/dL (<2.0)
[2018-01-30 17:18] LABS: URINE AMPHETAMINES SCREEN NEGATIVE; URINE BARBITURATES SCREEN NEGATIVE; URINE BENZODIAZEPINES SCREEN NEGATIVE; URINE COCAINE SCREEN NEGATIVE; URINE MARIJUANA (THC) SCREEN NEGATIVE; URINE METHADONE SCREEN NEGATIVE; URINE PHENCYCLIDINE SCREEN NEGATIVE
[2018-01-30] MEDS ORDERED: ACETAMINOPHEN 325 MG TABLET PO ONE (18:08)
[2018-01-30] MEDS ORDERED: ACETAMINOPHEN 325 MG TABLET ONE (18:10)
--- NOTE | 2018-01-30 18:27 | Non Stress Test Report ---
Non Stress Test Datetime Report Generated by CPN: 01/30/2018 18:27 DEMOGRAPHIC EGA NST: 37.2 INDICATION Indication for Study: Ordered by Provider MONITORING Monitor Explained: Monitor Explained; Test Explained; Patient Verbalized Understanding Time on Monitor: 01/30/2018 15:53 Time off Monitor: 01/30/2018 18:11 NST Duration: 138 NST INTERVENTIONS NST Interventions: PO Hydration; Reposition Patient Physician Notified NST: Dr. Lex BABY A: [id number] BABY A Movement : Present Contraction Frequency : 3-7 FHR Baseline : 125 Accelerations : 15X15 Decelerations : None Variability : Moderate 6-25bpm NST Review: Meets Criteria for Reactive NST NST Review and Verified By : Eber Terry RNC NST Results: Reactive NST REPORT Report Trigger: Send Report
== END 2018-01-30 18:11 | disposition home or self-care (01) ==
LOC: LC 15:30
PROVIDERS: ATTEND Obstetrics & Gynecology
PROC: 4A1HXCZ Monitoring of Products of Conception, Cardiac Rate, External Approach (ICD-10-PCS; principal; 2018-01-30)
DX: O47.1 False labor at or after 37 completed weeks of gestation (principal); O26.893 Other specified pregnancy related conditions, third trimester; E86.0 Dehydration; Z3A.37 37 weeks gestation of pregnancy; Z79.899 Other long term (current) drug therapy
CPT/HCPCS: 81001; 80307; 59025; J3490 ×2

== ENCOUNTER 2018-02-12 06:47 | Inpatient (IN) | payer MEDICAID ==
[2018-02-11 11:47] LABS: ABSOLUTE EOSINOPHILS # (AUTO) 0.2 10^3/uL (0.0-0.6); ABSOLUTE LYMPHOCYTES (AUTO) 2.1 10^3/uL (0.5-4.7); ABSOLUTE MONOCYTES (AUTO) 0.6 10^3/uL (0.1-1.4); ABSOLUTE NEUT (AUTO) 8.5 10^3/uL (1.7-8.2); BASOPHILS % (AUTO) 0.2 % (0-2); EOSINOPHILS % (AUTO) 1.6 % (0-6); HEMATOCRIT 34.2 % (36.0-47.0); HEMOGLOBIN 10.7 g/dL (12.0-15.5); LYMPHOCYTES % (AUTO) 18.2 % (13-45); MEAN CORPUSCULAR HEMOGLOBIN 22.7 pg (27.0-33.4); MEAN CORPUSCULAR HGB CONC 31.2 g/dL (32.0-36.0); MEAN CORPUSCULAR VOLUME 73 fl (80-97); MONOCYTES % (AUTO) 5.1 % (3-13); PLATELET COUNT 221 10^3/uL (150-450); RED BLOOD COUNT 4.71 10^6/uL (3.72-5.28); RED CELL DISTRIBUTION WIDTH 22.7 % (11.5-14.0); SEGMENTED NEUTROPHILS % (AUTO) 74.9 % (42-78); TOTAL CELLS COUNTED % (AUTO) 100 %; WHITE BLOOD COUNT 11.3 10^3/uL (4.0-10.5)
[2018-02-11 11:50] LABS: APPEARANCE,URINE CLOUDY; BILIRUBIN,URINE NEGATIVE (NEGATIVE); GLUCOSE, URINE NEGATIVE (NEGATIVE); KETONES,URINE NEGATIVE (NEGATIVE); LEUKOCYTE ESTERASE,URINE NEGATIVE (NEGATIVE); NITRITE,URINE NEGATIVE (NEGATIVE); PROTEIN,URINE NEGATIVE (NEGATIVE); URINE SPECIFIC GRAVITY 1.023; UROBILINOGEN,URINE NEGATIVE mg/dL (<2.0)
[2018-02-11 11:51] LABS: COLOR,URINE YELLOW
[2018-02-11 12:03] LABS: URINE AMPHETAMINES SCREEN NEGATIVE; URINE BARBITURATES SCREEN NEGATIVE; URINE BENZODIAZEPINES SCREEN NEGATIVE; URINE COCAINE SCREEN NEGATIVE; URINE MARIJUANA (THC) SCREEN NEGATIVE; URINE METHADONE SCREEN NEGATIVE; URINE PHENCYCLIDINE SCREEN NEGATIVE
[~2018-02-12 06:47] MED LIST: CEFAZOLIN 2 GM/D5W RTU 2 GM/50 ML RTUPB IV PRN; LIDOCAINE 0.5% INJ-PF (5 MG/ML) 50 ML SDV SUBCUT PRN; RINGERS SOLUTION,LACTATED 500 ML IV PRN
[2018-02-12] MEDS ORDERED: OXYTOCIN 10 UNIT/ML VIAL ONE (07:38)
[2018-02-12] MEDS ORDERED: TETRACAINE HCL/PF 20MG/2ML AMPULE (SPINAL) ONE (07:38)
[2018-02-12] MEDS: LACTATED RINGERS 1000 ML IV PRN ×2 (08:02→08:36)
[2018-02-12] MEDS ORDERED: RINGERS SOLUTION,LACTATED 1,000 ML IV PRN (09:34)
[2018-02-12] MEDS ORDERED: PROMETHAZINE HCL INJ 25 MG/1 ML VIAL IV PRN ×2 (09:34→10:32)
[2018-02-12] MEDS ORDERED: ACETAMINOPHEN 325 MG TABLET PO PRN (09:34)
[2018-02-12] MEDS ORDERED: SIMETHICONE 80 MG TAB.CHEW PO PRN (09:34)
[2018-02-12] MEDS ORDERED: HYDROMORPHONE HCL INJ/PF 2 MG/ML AMPULE IV PRN (09:34)
[2018-02-12] MEDS ORDERED: OXYCODONE-ACETAMINOPHEN 5-325 MG TABLET PO PRN (09:34)
[2018-02-12] MEDS ORDERED: OXYTOCIN/NORMAL SALINE 20 UNIT/1,000 ML RTUINJ IV PRN (09:34)
[2018-02-12] MEDS ORDERED: ACETAMINOPHEN 100 ML IV PRN (09:34)
[2018-02-12] MEDS ORDERED: MEASLES,MUMPS&RUBELLA VACC/PF 0.5 ML VIAL SUBCUT PRN (09:34)
[2018-02-12] MEDS ORDERED: DIPH/PERTUSS(ACELL)/TETANUS VAC/PF 0.5 ML SYR (>=10YO) IM PRN (09:34)
[2018-02-12] MEDS: CEFAZOLIN 2 GM/D5W RTU 2 GM/50 ML RTUPB IV ONE ×2 (09:45→13:33)
[2018-02-12] MEDS ORDERED: KETOROLAC TROMETHAMINE INJ/PF 30 MG/1 ML SDV IV SCH (09:45)
[2018-02-12] MEDS ORDERED: DIPHENHYDRAMINE HCL 50 MG/ML VIAL IV PRN (10:32)
[2018-02-12] MEDS ORDERED: FENTANYL CITRATE INJ/PF 100 MCG/2 ML AMPUL IV PRN ×3 (10:32)
[2018-02-12] MEDS ORDERED: MEPERIDINE HCL/PF INJ 25 MG/1 ML DISP.SYRIN IV PRN (10:32)
[2018-02-12] MEDS ORDERED: FENTANYL CITRATE INJ/PF 100 MCG/2 ML AMPUL ONE (10:55)
[2018-02-12] MEDS ORDERED: MIDAZOLAM 2 MG/2 ML INJ ONE (10:55)
--- NOTE | 2018-02-12 10:55 | Operative Report ---
Operative Report DATE OF SURGERY: 02/12/18 PREOPERATIVE DIAGNOSIS: Breech positioning POSTOPERATIVE DIAGNOSIS: Baby is in aquatic position and turned vertex for the delivery of the head to the uterine incision OPERATION: Primary via low transverse uterine incision as well as tubal ligation with Filshie clips SURGEON: FREDO HOLDER ANESTHESIA: Spinal TISSUE REMOVED OR ALTERED: Placenta and fallopian tubes COMPLICATIONS: None ESTIMATED BLOOD LOSS: 250 cc INTRAOPERATIVE FINDINGS: Viable female Apgars 8 9 weight 7 7 normal uterus tubes and ovaries PROCEDURE: Prior to the procedure the patient was abdomen was checked and the baby was in a breech position. Patient was taken to the OR and placed in supine position after her spinal anesthesia. She is prepared and draped in sterile fashion. Andersen was placed for drainage of the bladder. Low transverse incision was made and carried down the level of the fascia. The fascial incision was made with knife and extended bilaterally with curved Lew scissors. The fascia was off the rectus muscles using sharp and blunt dissection. The rectus muscles are in the midline. The peritoneum was entered without incident. Bladder blade was placed in uterine segment was identified. At this point palpation revealed the baby's head in a more transverse position and was guided down into the lower uterine segment. My thought is that the baby is very aquatic in position and moves frequently and moved during the spinal or during the placement in a supine position. A low transverse incision was made creating a bladder flap. Bladder blade was placed low transverse uterine incision was made with the knife and extended with fingertips. The baby was delivered with some fundal pressure. Mouth and nose were suctioned free. The cord is doubly clamped and cut. Baby is passed off to the tennis professional in attendance. The placenta was manually extracted with trailing membranes. The uterus was externalized wrapped in a moist lap sponge. Uterine contents wiped free. Uterus was closed with a running locking layer of 0 chromic suture using the second layer to imbricate the first completing a double layer closure of the uterus. The serosa was closed with a running 2-0 chromic stitch. Filshie clips were placed across the mid isthmic portion of each fallopian tube. Each tube was identified by its fimbriated end. The pelvis was irrigated and suctioned free of fluid the uterus was replaced in the abdomen. The abdominal wall peritoneum was closed with running 2-0 chromic stitch. Fascia was closed with a running 0 Vicryl in 2 segments. Violetta's layer was brought together with 0 plain gut stitch and the skin was closed with running subcuticular 4-0 undyed Vicryl stitch. The wound was dressed mother and baby did well.
[2018-02-12] MEDS ORDERED: ACETAMINOPHEN 100 ML IV ONE (11:44)
[2018-02-12] MEDS: FENTANYL CITRATE INJ/PF 100 MCG/2 ML AMPUL ONE ×3 (12:00→12:22)
[2018-02-12] MEDS: KETOROLAC TROMETHAMINE INJ/PF 30 MG/1 ML SDV ONE ×2 (12:30→13:31)
[2018-02-12] MEDS: IBUPROFEN 800 MG TABLET PO SCH ×2 (13:31→18:20)
[2018-02-12] MEDS: DOCUSATE SODIUM 100 MG CAPSULE PO SCH ×2 (13:39→18:20)
[2018-02-12] MEDS: PRENATAL VITAMIN W DHA CAPSULE PO SCH (13:39)
[2018-02-12] MEDS ORDERED: DEXAMETHASONE SOD PHOSPHATE INJ 4 MG/1 ML VIAL ONE (14:54)
[2018-02-12] MEDS ORDERED: ONDANSETRON HCL INJ/PF 4 MG/2 ML SDV ONE (14:54)
[2018-02-12] MEDS: OXYCODONE-ACETAMINOPHEN 5-325 MG TABLET PO PRN ×2 (15:57→20:53)
[2018-02-12] MEDS: KETOROLAC TROMETHAMINE INJ/PF 30 MG/1 ML SDV IV SCH (22:42)
[2018-02-13] MEDS: IBUPROFEN 800 MG TABLET PO SCH ×4 (01:01→18:05)
[2018-02-13] MEDS: OXYCODONE-ACETAMINOPHEN 5-325 MG TABLET PO PRN ×4 (03:31→21:02)
[2018-02-13] MEDS: KETOROLAC TROMETHAMINE INJ/PF 30 MG/1 ML SDV IV SCH (06:53)
[2018-02-13 07:34] LABS: MEAN CORPUSCULAR HEMOGLOBIN 22.7 pg (27.0-33.4); MEAN CORPUSCULAR HGB CONC 31.1 g/dL (32.0-36.0); MEAN CORPUSCULAR VOLUME 73 fl (80-97); PLATELET COUNT 171 10^3/uL (150-450); RED BLOOD COUNT 3.55 10^6/uL (3.72-5.28); RED CELL DISTRIBUTION WIDTH 22.6 % (11.5-14.0)
[2018-02-13 07:35] LABS: HEMOGLOBIN 8.1 g/dL (12.0-15.5)
[2018-02-13] MEDS: DOCUSATE SODIUM 100 MG CAPSULE PO SCH ×2 (09:39→18:05)
[2018-02-13] MEDS: PRENATAL VITAMIN W DHA CAPSULE PO SCH (09:39)
--- NOTE | 2018-02-13 10:05 | PDOC PROGRESS REPORT ---
Subjective-OB Progress Note for:: 02/13/18 Subjective: s/p r c/s day #1 Pt doing well, pain well controlled, voiding without difficulty, lochia is stable, ambulating well, passing gas, bonding with baby. Physical Exam (OB) Vital Signs: Temp Pulse Resp BP Pulse Ox 98.4 F 87 20 114/68 97 02/13/18 07:39 02/13/18 07:39 02/13/18 07:39 02/13/18 07:39 02/13/18 07:39 Intake & Output 02/12/18 02/13/18 02/14/18 06:59 06:59 06:59 Intake Total 2950 Output Total 2225 Balance 725 Weight 83.01 kg 83.01 kg - PIH/Pre-Eclampsia DTR's: 1 + Clonus: Negative Headache: Absent Epigastric Pain: No Visual Changes: No - Dressing Removed: No Incision: Dressing, Well Approximated Closure Type: op site - Lochia Lochia Amount: Scant < 10 ml Lochia Color: Rubra/Red - Abdomen Description: Tender, Firm, Round Hernia Present: No Fundal Description: Firm, Midline Describe if Not Midline: patient refused fundal rub after 3 attempts Fundal Height: u/u - u/2 Objective-Diagnostic Laboratory: 02/13/18 06:58 02/13/18 06:58 WBC 13.0 H RBC 3.55 L Hgb 8.1 L D Hct 26.0 L MCV 73 L MCH 22.7 L MCHC 31.1 L RDW 22.6 H Plt Count 171 Assessment and Plan(PN) - Assessment and Plan (1) S/P repeat low transverse Is this a current diagnosis for this admission?: Yes Plan: routine postop care (2) History of depression Is this a current diagnosis for this admission?: Yes Plan: in office follow up d/c city planner (3) Anemia Qualifiers: Anemia type: iron deficiency Iron deficiency anemia type: unspecified iron deficiency Qualified Code(s): D50.9 - Iron deficiency anemia, unspecified Is this a current diagnosis for this admission?: Yes - Time Spent with Patient Time with patient: Less than 15 minutes Critical Time spent with patient: Less than 15 minutes Medications reviewed and adjusted accordingly: Yes - Disposition Anticipated Discharge: Home Within: within 24 hours
[2018-02-14] MEDS: IBUPROFEN 800 MG TABLET PO SCH ×3 (03:35→11:40)
[2018-02-14] MEDS: OXYCODONE-ACETAMINOPHEN 5-325 MG TABLET PO PRN (08:48)
--- NOTE | 2018-02-14 09:10 | PDOC DISCHARGE SUMMARY ---
Final Diagnosis Discharge Date: 02/14/18 - Final Diagnosis (1) S/P repeat low transverse Is this a current diagnosis for this admission?: Yes (2) History of depression Is this a current diagnosis for this admission?: Yes (3) Anemia Is this a current diagnosis for this admission?: Yes Discharge Data - Discharge Medication Prescriptions: Oxycodone HCl/Acetaminophen [Percocet 5-325 mg Tablet] 2 tab PO Q4HP PRN #30 tablet PRN Reason: Docusate Sodium [Colace 100 mg Capsule] 100 mg PO BID #60 capsule Ferrous Sulfate 325 mg PO BID #60 tablet Ibuprofen [Motrin 800 mg Tablet] 800 mg PO Q6 #60 tablet Home Medications: Pnv 76/Iron,Gluc/Folic/Dss/Dha [Citranatal Dha Pack] 1 each PO DAILY 10/17/17 Docusate Sodium [Colace 100 mg Capsule] 100 mg PO BID #60 capsule 02/14/18 Ferrous Sulfate 325 mg PO BID #60 tablet 02/14/18 Ibuprofen [Motrin 800 mg Tablet] 800 mg PO Q6 #60 tablet 02/14/18 Oxycodone HCl/Acetaminophen [Percocet 5-325 mg Tablet] 2 tab PO Q4HP PRN #30 tablet 02/14/18 Gestational Age: 39 Reason(s) for Admission: Ceasarean Section-Primary, Tubal Ligation Procedures: NST Intrapartum Procedure(s): : Low Cervical, Transverse, Tubal Ligation - [place] Data Baby 1 Female at 1 minute: 8 at 5 minutes: 9 Weight: 3.374 kg Home with Mother: Yes Complications: No - Diagnosis Test Laboratory: Temp Pulse Resp BP Pulse Ox 98.4 F 81 16 118/54 L 97 02/14/18 07:49 02/14/18 07:49 02/14/18 07:49 02/14/18 07:49 02/14/18 07:49 02/11/18 02/11/18 02/13/18 10:45 10:53 06:58 RBC 4.71 3.55 L Hgb 10.7 L 8.1 L D Hct 34.2 L 26.0 L Urine Opiates Screen NEGATIVE - Discharge information/Instructions Discharge Activity: Activity As Tolerated, No Driving, No Lifting Over 10 Pounds , Pelvic Rest, No tub bath Discharge Diet: Regular Disposition: HOME, SELF-CARE Follow [facility]: [facility] in: 1, Weeks
[2018-02-14] MEDS: PRENATAL VITAMIN W DHA CAPSULE PO SCH (09:36)
[2018-02-14] MEDS: DOCUSATE SODIUM 100 MG CAPSULE PO SCH (09:36)
[2018-02-14 13:38] VITALS: BP 113/68
== END 2018-02-14 13:20 | disposition home or self-care (01) | DRG 766 ==
LOC: 2S 06:47
PROVIDERS: ADMIT Obstetrics & Gynecology; ATTEND Obstetrics & Gynecology
PROC: 0UL70CZ Occlusion of Bilateral Fallopian Tubes with Extraluminal Device, Open Approach (ICD-10-PCS; 2018-02-12)
PROC: 4A1HXCZ Monitoring of Products of Conception, Cardiac Rate, External Approach (ICD-10-PCS; 2018-02-12)
PROC: 10D00Z1 Extraction of Products of Conception, Low, Open Approach (ICD-10-PCS; principal; 2018-02-12 09:40)
DX: O40.3XX0 Polyhydramnios, third trimester, not applicable or unspecified (principal); O32.1XX0 Maternal care for breech presentation, not applicable or unspecified; O99.02 Anemia complicating childbirth; D50.9 Iron deficiency anemia, unspecified; Z30.2 Encounter for sterilization; Z3A.39 39 weeks gestation of pregnancy; Z37.0 Single live birth
CPT/HCPCS: 1961; 36415; 80307; 81001; 82962; 85025; 85027; 86850; 86900; 86901; 94799; J0131; J0690; J1100; J1170; J1885; J2250; J2405; J2550; J2590; J3010; J3490; J7120